=== PATIENT | female | born 1930 | race Caucasian/White ===

== ENCOUNTER → 2016-10-08 | Outpatient (REF) | payer MEDICARE, OTHER, MEDICAID ==
[~2016-10-08] MED LIST: /ATOR40TA; ASPI81TA83; CHLO10CA2; DARV100T; DYAZ37.5; K-LO20PO; LASI40TA; MACR50CA; MECL25TA2; ZOLO100T
== END ==
LOC: M SFHCCAPE 10:49
PROVIDERS: ATTEND Physician Assistant
DX: Z53.8 Procedure and treatment not carried out for other reasons (principal); E78.2 Mixed hyperlipidemia; E03.9 Hypothyroidism, unspecified; Z51.81 Encounter for therapeutic drug level monitoring

== ENCOUNTER 2017-07-17 20:24 | Inpatient (IN) | payer MEDICARE, OTHER, MEDICAID ==
[~2017-07-17] VITALS: Ht 157.5 cm; Wt 102.6 kg
[~2017-07-17 20:24] MED LIST changes: +MECL25TA2 PO
[2017-07-17] MEDS ORDERED: SPIR50TA2 PO (21:28)
[2017-07-17] MEDS ORDERED: TRAM37.53 PO (21:30)
[2017-07-17] MEDS ORDERED: LEVO137T2 PO (21:31)
[2017-07-17] MEDS ORDERED: VITA1CAP40 PO (21:34)
[2017-07-17] MEDS ORDERED: COUM2.5T17 PO (21:36)
[2017-07-17] MEDS ORDERED: WARF4TAB51 PO (21:36)
[2017-07-17 22:25] LABS: BASO % 0.1 % (0.0-1.0); IMMATURE GRANULOCYTE % 0.7 % (0-0); LYMPH # 0.8 10^3/uL (1.5-4.5); MEAN CORPUSCULAR HEMOGLOBIN 31.6 pg (27.0-33.0); MEAN CORPUSCULAR HGB CONC 33.2 g/dl (32.0-36.5); MONO # 1.7 10^3/uL (0.0-0.8); MONO % 8.5 % (0.0-5.0); NEUTROPHILS # 17.8 10^3/uL (1.8-7.7); NEUTROPHILS % 86.7 % (36.0-66.0); PLATELET COUNT, AUTOMATED 184 10^3/uL (150-450); RED CELL DISTRIBUTION WIDTH 12.8 % (11.5-14.5); WHITE BLOOD COUNT 20.5 10^3/uL (4.0-10.0)
[2017-07-17 22:48] LABS: INR 2.58
[2017-07-17 22:52] LABS: ALBUMIN 2.6 GM/DL (3.2-5.2); ALBUMIN/GLOBULIN RATIO 0.76 (1.00-1.93); BILIRUBIN,DIRECT 0.3 MG/DL (0.0-0.2); BILIRUBIN,TOTAL 0.6 MG/DL (0.2-1.0); CALCIUM LEVEL 8.7 MG/DL (8.8-10.2); CREATININE FOR GFR 2.36 MG/DL (0.55-1.02); GLOMERULAR FILTRATION RATE 20.8 (>32); POTASSIUM SERUM 4.4 MEQ/L (3.5-5.1)
[2017-07-17] MEDS ORDERED: ACETAMINOPHEN TAB 650MG DOSE (2X325MG) PO ONE (23:15)
[2017-07-17] MEDS ORDERED: NS 1,000 ML IV ONE (23:30)
[2017-07-18] VITALS (7 sets, daily range): BP systolic 117–169; BP diastolic 60–87
[2017-07-18] MEDS ORDERED: CEFTRIAXONE SOD 1 GM in APPROPRIATE DILUENT 1 EA IV ONE (00:15)
[2017-07-18] MEDS ORDERED: ULTR37.54 PO (00:49)
[2017-07-18] MEDS ORDERED: WARF4TAB52 PO (00:49)
[2017-07-18] MEDS ORDERED: SYNT137T7 PO (00:49)
[2017-07-18] MEDS ORDERED: VITA1CAP40 PO (00:49)
[2017-07-18] MEDS ORDERED: MECL-68 PO (00:49)
[2017-07-18] MEDS ORDERED: SPIR50TA2 PO (00:49)
[2017-07-18] MEDS ORDERED: PATIENT COMMENT (00:49)
[2017-07-18] MEDS ORDERED: CHLO10CA PO (00:49)
[2017-07-18] MEDS ORDERED: ATOR1TAB19 PO (00:49)
[2017-07-18] MEDS ORDERED: WARF4TAB51 PO (00:49)
[2017-07-18] MEDS ORDERED: SERT-138 PO (00:49)
[2017-07-18] MEDS ORDERED: ONDANSETRON 4MG/2ML VIAL (J2405) IV PRN ×2 (02:00→08:45)
[2017-07-18] MEDS ORDERED: ACETAMINOPHEN TAB 650MG DOSE (2X325MG) PO PRN (02:00)
--- NOTE | 2017-07-18 02:40 | REPUSA ---
CLINICAL HISTORY: Abdominal pain. TECHNIQUE: Multiple axial, sagittal and coronal CT images were obtained through the abdomen and pelvi s without administration of oral or IV contrast material. COMMENTS: Right lateral anterior abdominal wall hernia containing incarcerated small and large bowels. 1.6x0.6 cm obstructing stone of the right ureteropelvic junction. Mild right hydronephrosis. Right pe rinephric fat stranding. Bilateral renal stones ranging in size between 4 and 22 mm. Prior hysterectomy. 4.5 cm left renal cyst. The liver is of uniform attenuation without mass or defect. There is no intra or extrahepatic biliary ductal dilatation. The spleen is normal. The gallbladder is absent. The pancreas is of normal contou r and attenuation characteristics. There is no evidence of adrenal mass. There is no evidence for appendicitis. There is no bowel wall thickening. No evidence for small or la rge bowel obstruction. There is no evidence of abdominal ascites or lymphadenopathy. There is no evidence of intrinsic or extrinsic bladder mass. There is no pelvic ascites or lymphadeno sergei. Images of the lung bases show no evidence of pleural or parenchymal mass. Bilateral basilar subsegmen antoine atelectatic airspace disease. There are no pleural effusions. Bilateral basilar subsegmental atel ectatic airspace disease in the lower lobes. The bony structures are free of lytic or blastic lesions. Multilevel degenerative changes are seen in volving the thoracolumbar spine. Scattered calcifications are seen involving the aorta and major branches compatible with atherosclero sis. IMPRESSION: Right lateral anterior abdominal wall hernia containing nonincarcerated bowels. Obstructing stone at the right ureteropelvic junction. Bilateral nephrolithiasis. Thank you for your kind referral of this patient.
--- NOTE | 2017-07-18 02:48 | REP ---
Clinical: Fever . Comparison: 12/13/2014 . Findings: The mediastinum and cardiac silhouette are stable and within normal limits for portable technique. The lung jensen are clear without acute consolidation, effusion, or pneumothorax. Skeletal structures are intact. Impression: No acute cardiopulmonary process appreciated. Signed by Claus Cornejo MD 07/18/2017 02:38 A
--- NOTE | 2017-07-18 04:05 | HPEPDOC ---
General Date of Admission Jul 18, 2017 at 01:42 Primary Care Physician: ADELA BERMUDEZ PA-C Chief Complaint The patient is a 86-year-old female admitted with a reason for visit generalized weakness w/ n/v abdominal pain / to Uti w/Sepsis. Source: Family Exam Limitations: Dementia, Garbled speech Timing/Duration: 24 hours Severity: Severe History of Present Illness Ms. Webb is an 86-year-old female with past medical history of hypertension, anxiety, depression, obesity, history of lung and leg clot, Alzheimer's disease who presents to the emergency department with her daughter and grandson at bedside with the acute complaint of sudden onset generalized weakness accompanied with nausea and vomiting. The patient is at her baseline mentation according to family and much of the HPI and review of systems cannot be provided by the patient as she has advanced dementia and garbled speech. According to family, the patient began complaining of some generalized abdominal discomfort yesterday afternoon with increase in belching, she went to the bathroom and acutely was not able to get up due to bilateral leg weakness, the daughter and her son were there and decided to call EMS. The patient had vomited prior to the weakness episode, mostly the food she had tried to consume prior, no blood was present. She has not been ill lately, no fevers, muscle aches or chills, no pain with urination or blood in her urine, no back pain has been reported nor pain with defecation or blood in stool, although the patient did have 1 episode of loose stool with no blood yesterday afternoon. The patient did not states she was dizzy during her episode of weakness, she did not complain of chest pain nor shortness of breath, change in vision or headache. She did not fall nor sustain LOC. She lives at home by herself but has [id number]-[id number]-[id number] care by home health aides which are her grandsons. She takes all of her medication as scheduled. The family has noted that the past couple days she has not been eating or drinking as much as she normally does. In the emergency department the patient is able to tell me only that she is not in any pain at the moment. Home Medications Scheduled Atorvastatin Calcium (Atorvastatin Calcium) 10 Mg Tab, 10 MG PO DAILY, (Reported ) Ergocalciferol (Vitamin D) 50,000 Unit Cap, 50,000 UNIT PO 1XWK, (Reported) Levothyroxine Sodium (Synthroid) 137 Mcg Tab, 137 MCG PO DAILY, (Reported) Sertraline HCl (Sertraline HCl) 100 Mg Tab, 100 MG PO DAILY, (Reported) Spironolactone (Spironolactone) 50 Mg Tab, 50 MG PO DAILY, (Reported) Warfarin Sod (Warfarin Sodium) 1 Mg Tab, 1 MG PO ASDIRECTED, (Reported) TAKES EVERY OTHER DAY Warfarin Sod (Warfarin Sodium) 2 Mg Tab, 2 MG PO ASDIRECTED, (Reported) TAKES EVERY OTHER DAY Scheduled PRN Chlordiazepoxide (Chlordiazepoxide HCl) 10 Mg Cap, 10 MG PO TID PRN for ANXIETY/ AGITATION, (Reported) Meclizine HCl (Meclizine HCl) 25 Mg Tab, 25 MG PO Q6H PRN for VERTIGO/DIZZINESS, (Reported) Tramadol/Apap (Ultracet 37.5-325 mg) 1 Tab Tab, 1 TAB PO Q6H PRN for PAIN, ( Reported) Miscellaneous Medications [Patient Comment] , (Reported) FAMILY AT THE HOSPITAL AND PATIENT WERE UNAWARE OF MEDICATION. ANOTHER GRANDSON OF THE PATIENT TAKES CARE OF THE MEDS AND DID NOT ANSWER HIS MOM'S PHONE CALLS. GOING TO TRY TO CALL HIM IN THE MORNING. Allergies Coded Allergies: Atenolol (Verified Allergy, Unknown, 11/19/12) Furosemide (Verified Allergy, Unknown, 11/19/12) Past Medical History Medical History As per HPI Family History Significant Family History: No pertinent family hx Social History * Smoker: Denies Alcohol: Denies Drugs: denies Lives at home by herself with lwdsrr-fan-cwaoj care from home health aides. Review of Symptoms Constitutional: Reports: Malaise, Weakness, Fatigue, Other (obtained from her family at bedside, patient has advanced dementia and garbled speech- this is her baseline), Denies: Chills, Fever, Night Sweats, Weight Loss Eyes: Denies: Pain ENT: Denies: Head Aches Skin: Reports: Bruising (patient is on Coumadin), Denies: Rash, Lesions Pulmonary: Denies: Dyspnea, Cough Cardiovascular: Denies: Chest Pain, Palpitations Gastrointestinal: Reports: Nausea, Vomiting, Abdominal Pain, Diarrhea Genitourinary: Denies: Dysuria, Frequency, Incontinence, Hematuria, Retention Hematologic: Reports: Bruising Neurological: Reports: Weakness, Denies: Numbness, Incoordination, Change in speech Psych: Reports: Memory Issues Physical Examination General Exam: Positive: Alert, Cooperative, No Acute Distress, Other (garbled speech) Eye Exam: Positive: Conjunctiva & lids normal, EOMI, Negative: Sclera icteric ENT Exam: Positive: Atraumatic, Mucous membr. moist/pink, Pharynx Normal, Tongue Midline, Nares Patent, Negative: Pharyngeal Edema Heart Exam: Positive: Rate Normal, Normal S1, Normal S2, Negative: Murmurs, Rubs Abdomen Exam: Positive: Normal bowel sounds, Soft, Tenderness (mild diffuse tenderness), Negative: Hepatospenomegaly Extremity Exam: Positive: Edema (trace bilateral lower extremity edema, this is normal as per family), Normal pulses, Negative: Clubbing, Cyanosis, Tenderness Skin Exam: Positive: Other skin issue (patient does have generalized bruising, patient family states that this is from being on blood thinner and bruising easily when she happens to bump into things), Negative: Rash, Breakdown Neuro Exam: Negative: Normal Gait (at baseline patient is really nonmobile, requires 2 people to transport her from wheelchair to bed) Psych Exam: Negative: Memory Intact, Oriented x 3 Vital Signs Vital Signs Date Time Temp Pulse Resp B/P (MAP) Pulse Ox O2 Delivery O2 Flow Rate FiO2 07/17/17 23:39 131/60 (83) 07/17/17 23:34 92 94 07/17/17 23:05 102.3 07/17/17 21:46 20 Laboratory Data Labs 24H Laboratory Tests 2 07/17/17 22:20: Immature Granulocyte % (Auto) 0.7H, White Blood Count 20.5H, Red Blood Count 3.77L, Hemoglobin 11.9L, Hematocrit 35.8L, Mean Corpuscular Volume 95.0, Mean Corpuscular Hemoglobin 31.6, Mean Corpuscular Hemoglobin Concent 33.2, Red Cell Distribution Width 12.8, Platelet Count 184, Neutrophils (%) (Auto) 86.7H, Lymphocytes (%) (Auto) 4.0L, Monocytes (%) (Auto) 8.5H, Eosinophils (%) (Auto) 0.0, Basophils (%) (Auto) 0.1, Neutrophils # (Auto) 17.8H, Lymphocytes # (Auto) 0.8L, Monocytes # (Auto) 1.7H, Eosinophils # (Auto) 0.0, Basophils # (Auto) 0.0 , Immature Granulocyte # (Auto) 0.2H, Nucleated Red Blood Cells % (auto) 0.0, Prothrombin Time 28.8H, Prothromb Time International Ratio 2.58, Anion Gap 10, Glomerular Filtration Rate 20.8L, Calcium Level 8.7L, Aspartate Amino Transf ( AST/SGOT) 25, Alanine Aminotransferase (ALT/SGPT) 12, Alkaline Phosphatase 94, Total Bilirubin 0.6, Direct Bilirubin 0.3H, Total Creatine Kinase 122, Creatine Kinase MB 1.0, Creatine Kinase MB Relative Index 0.81, Troponin I 0.04, C- Reactive Protein, Quantitative 33.90H, Total Protein 6.0L, Albumin 2.6L, Albumin /Globulin Ratio 0.76L, Lipase 41L 07/17/17 23:04: Urine Appearance CLOUDYH, Urine Color YELLOW, Urine pH 5.0, Urine Specific [place] 1.014, Urine Protein 1+H, Urine Glucose (UA) NEGATIVE, Urine Ketones NEGATIVE, Urine Urobilinogen 0.2, Urine Bilirubin NEGATIVE, Urine Leukocyte Esterase 3+H, Urine Blood 2+H, Urine Nitrite NEGATIVE, Urine WBC (Auto) 63H, Urine RBC (Auto) 3, Urine Hyaline Casts (Auto) 0, Urine Bacteria (Auto) 3+H, Urine Squamous Epithelial Cells 0, Urine Amorphous Sediment SMALLH, Urine Mucus (Auto) SMALL, Urine Sperm (Auto) 07/17/17 23:30: Lactic Acid Level 1.6 CBC/BMP Laboratory Tests 07/17/17 22:20 Red Blood Count 3.77 L, Mean Corpuscular Volume 95.0, Mean Corpuscular Hemoglobin 31.6, Mean Corpuscular Hemoglobin Concent 33.2, Red Cell Distribution Width 12.8, Neutrophils (%) (Auto) 86.7 H, Lymphocytes (%) (Auto) 4.0 L, Monocytes (%) (Auto) 8.5 H, Eosinophils (%) (Auto) 0.0, Basophils (%) ( Auto) 0.1, Neutrophils # (Auto) 17.8 H, Lymphocytes # (Auto) 0.8 L, Monocytes # (Auto) 1.7 H, Eosinophils # (Auto) 0.0, Basophils # (Auto) 0.0 Microbiology Microbiology 07/17/17 Blood Culture, Received Pending 07/17/17 Blood Culture, Received Pending 07/17/17 Urine Culture, Received Pending Assessment/Plan This is an 86-year-old female presents to the emergency department after an episode of acute onset bilateral leg weakness accompanied by nausea and vomiting with diffuse abdominal discomfort. 1. Sepsis Patient meets SIRS criteria with a source, on presentation patient had fever 102.3 with a white count of 20.5, she was also tachycardic. Likely secondary to UTI, objective uropathy-obstructing stone seen on CT abdomen and pelvis UA in ED positive for infection Urine culture pending Blood culture pending Lactic within normal limits in ED, will repeat Patient received ceftriaxone in the emergency department, will continue with Zosyn therapy We'll gently fluid hydrate the patient normal saline at 100 Chest x-ray negative for focal source of infection CT abdomen and pelvis showed obstructing stone at the right ureteropelvic junction and bilateral nephrolithiasis Urology has been consulted, appreciate their help, patient to OR in the morning her nephrostomy tubes placement 2. Obstructive uropathy CT abdomen and pelvis revealed obstructing stone in the right ureteropelvic junction Urology has been consulted, patient will go to the OR in the morning She has received ceftriaxone in the emergency department, will continue with Zosyn antibiotic therapy We'll keep a close watch on blood pressure as decompensation in these patients can occur quickly Patient's blood pressure stable now, will receive fluid hydration of normal saline at 100 -Patient made NPO 3. Acute kidney injury -Likely secondary to decreased oral intake, sepsis, medication use (patient is on home spironolactone) -Patient will receive normal saline at 100 -Urine studies pending -UA positive for UTI, urine culture pending 4. Generalized weakness Likely secondary to sepsis Physical therapy consulted Patient may require placement 5. History of DVT and PE We'll hold Coumadin therapy for now in anticipation of procedure, INR therapeutic at 2.58, no FFP at this time 6. History of heart failure Patient's last echo in 2008 demonstrating ejection fraction of 65% We'll hold spironolactone at this time given acute kidney injury CXR in ED no cardiopulmonary process 7. Depression Continue with home medications 8. Hypothyroidism Continue with home medications 9. DVT prophylaxis SCD teds Plan / VTE VTE Prophylaxis Ordered?: Yes GME ATTESTATION GME ATTESTATION My faculty preceptor for this patient encounter was physically present during the encounter and was fully available. All aspects of the patient interview, examination, medical decision making process, and medical care plan development were reviewed and approved by the faculty preceptor. The faculty preceptor is aware and concurs with the plan as stated in the body of this note and will attest to such by his/her cosignature. SIMONE REDMAN DO Jul 18, 2017 04:05
[2017-07-18] MEDS: NS 1,000 ML IV SCH ×2 (04:16→09:31)
[2017-07-18 07:26] LABS: VENOUS BASE EXCESS -1.3 (-2.0-2.0); VENOUS O2 SATURATION 82.4 % (60.0-80.0); VENOUS PARTIAL PRESSURE CO2 43.4 mmHg (38.0-50.0); VENOUS PARTIAL PRESSURE O2 46.1 mmHg (30.0-50.0); VENOUS STANDARD HCO3 23.1 MEQ/L; VENOUS TOTAL CO2 25.5 MEQ/L (24.0-28.0)
[2017-07-18 07:35] LABS: MEAN CORPUSCULAR HEMOGLOBIN 31.6 pg (27.0-33.0); MEAN CORPUSCULAR HGB CONC 32.5 g/dl (32.0-36.5); MEAN CORPUSCULAR VOLUME 97.1 fl (80.0-96.0); PLATELET COUNT, AUTOMATED 119 10^3/uL (150-450); WHITE BLOOD COUNT 8.8 10^3/uL (4.0-10.0)
--- NOTE | 2017-07-18 07:53 | SMCUROLCON ---
Urology Consultation General Date of Consultation 07/18/17 Reason For Consultation This patient is seen for Uti,Sepsis. History of Present Illness This is an 86 y/o F w/ PMH significant for CKD, cataracts, DVTs, and Alzheimer' s dementia, admitted to the hospital for sepsis due to a urinary source. On w/ u in the ER a noncontrast CT A/P was notable for an obstructing 1.5cm right ureteropelvic junction (UPJ) stone as well as a nonobstructing 1.5cm right intrarenal stone. Her WBC was 20,000 and her Cr was elevated to 2.4. Due to dementia she is nonverbal. Past Medical History Medical History see HPI Surgical Hstory hysterectomy, appendectomy, cholecystectomy Medications Current Medications Current Medications Acetaminophen (Tylenol Tab) 650 mg Q4HP PRN PO MILD PAIN OR FEVER; Start at 02:00; Stop 08/17/17 at 01:59 Home Med (Med Rec Complete!) ASDIRECTED XX ; Start 07/18/17 at 01:00; Stop 07/18/17 at 01:09; Status DC Ondansetron HCl (ZOFRAN INJection) 4 mg Q6HP PRN IV NAUSEA OR VOMITING; Start 07/18/17 at 02:00; Stop 08/17/17 at 01:59 Piperacillin Sod/ Tazobactam Sod 2.25 gm/IV Miscellaneous Supplies 20 ml @ 40 mls/hr Q8H IV ; Start 07/18/17 at 09:00; Stop 07/25/17 at 08:59 Sodium Chloride 1,000 ml @ 125 mls/hr Q8H IV Last administered on 07/18/17t 04 :16; Start 07/18/17 at 01:59; Stop 07/18/17 at 18:25 Allergies Allergies: Coded Allergies: Atenolol (Verified Allergy, Unknown, 11/19/12) Furosemide (Verified Allergy, Unknown, 11/19/12) Review of Systems General: Reports: ROS Unobtainable Physical Examination General Exam: No Acute Distress Chest Exam: Clear to auscultation Heart Exam: Rate Normal, Regular Rhythm Abdomen Exam: Soft Skin Exam: Nl turgor and temperature Vital Signs/I&O Vital Signs Date Time Temp Pulse Resp B/P (MAP) Pulse Ox O2 Delivery O2 Flow Rate FiO2 07/18/17 06:13 98.5 110 20 149/87 (107) 98 Nasal Cannula 4.0 Laboratory Data 24H Labs Laboratory Tests 2 07/17/17 22:20: Immature Granulocyte % (Auto) 0.7H, White Blood Count 20.5H, Red Blood Count 3.77L, Hemoglobin 11.9L, Hematocrit 35.8L, Mean Corpuscular Volume 95.0, Mean Corpuscular Hemoglobin 31.6, Mean Corpuscular Hemoglobin Concent 33.2, Red Cell Distribution Width 12.8, Platelet Count 184, Neutrophils (%) (Auto) 86.7H, Lymphocytes (%) (Auto) 4.0L, Monocytes (%) (Auto) 8.5H, Eosinophils (%) (Auto) 0.0, Basophils (%) (Auto) 0.1, Neutrophils # (Auto) 17.8H, Lymphocytes # (Auto) 0.8L, Monocytes # (Auto) 1.7H, Eosinophils # (Auto) 0.0, Basophils # (Auto) 0.0 , Immature Granulocyte # (Auto) 0.2H, Nucleated Red Blood Cells % (auto) 0.0, Prothrombin Time 28.8H, Prothromb Time International Ratio 2.58, Anion Gap 10, Glomerular Filtration Rate 20.8L, Calcium Level 8.7L, Aspartate Amino Transf ( AST/SGOT) 25, Alanine Aminotransferase (ALT/SGPT) 12, Alkaline Phosphatase 94, Total Bilirubin 0.6, Direct Bilirubin 0.3H, Total Creatine Kinase 122, Creatine Kinase MB 1.0, Creatine Kinase MB Relative Index 0.81, Troponin I 0.04, C- Reactive Protein, Quantitative 33.90H, Total Protein 6.0L, Albumin 2.6L, Albumin /Globulin Ratio 0.76L, Lipase 41L 07/17/17 23:04: Urine Appearance CLOUDYH, Urine Color YELLOW, Urine pH 5.0, Urine Specific [place] 1.014, Urine Protein 1+H, Urine Glucose (UA) NEGATIVE, Urine Ketones NEGATIVE, Urine Urobilinogen 0.2, Urine Bilirubin NEGATIVE, Urine Leukocyte Esterase 3+H, Urine Blood 2+H, Urine Nitrite NEGATIVE, Urine WBC (Auto) 63H, Urine RBC (Auto) 3, Urine Hyaline Casts (Auto) 0, Urine Bacteria (Auto) 3+H, Urine Squamous Epithelial Cells 0, Urine Amorphous Sediment SMALLH, Urine Mucus (Auto) SMALL, Urine Sperm (Auto) 07/17/17 23:30: Lactic Acid Level 1.6 07/18/17 07:15: Blood Gas Bicarbonate Standard 23.1, Venous Blood pH 7.363, Venous Blood Partial Pressure CO2 43.4, Venous Blood Partial Pressure O2 46.1, Venous Blood Total Carbon Dioxide 25.5, Venous Blood HCO3 24.1, Venous Blood Oxygen Saturation 82.4H, Venous Blood Base Excess -1.3 CBC/BMP Laboratory Tests 07/17/17 22:20 Red Blood Count 3.77 L, Mean Corpuscular Volume 95.0, Mean Corpuscular Hemoglobin 31.6, Mean Corpuscular Hemoglobin Concent 33.2, Red Cell Distribution Width 12.8, Neutrophils (%) (Auto) 86.7 H, Lymphocytes (%) (Auto) 4.0 L, Monocytes (%) (Auto) 8.5 H, Eosinophils (%) (Auto) 0.0, Basophils (%) ( Auto) 0.1, Neutrophils # (Auto) 17.8 H, Lymphocytes # (Auto) 0.8 L, Monocytes # (Auto) 1.7 H, Eosinophils # (Auto) 0.0, Basophils # (Auto) 0.0 Microbiology Microbiology 07/17/17 Blood Culture, Received Pending 07/17/17 Blood Culture, Received Pending 07/17/17 Urine Culture, Received Pending Assessment This is an 86 y/o F w/ likely sepsis due to a urinary source and an obstructing right UPJ stone. Plan - continue broad-spectrum antibiotics - plan for OR this morning for cystoscopy and right ureteral stent placement ( informed consent obtained from patient's next of kin) - NPO until OR ALESSANDRO HER MD Jul 18, 2017 07:52
[2017-07-18 07:54] LABS: CREATININE FOR GFR 2.2 MG/DL (0.55-1.02); GLOMERULAR FILTRATION RATE 22.6 (>32); POTASSIUM SERUM 3.9 MEQ/L (3.5-5.1)
[2017-07-18] MEDS ORDERED: LIDOCAINE 2% 5ML JELLY UROJET As Ordered ONE (07:59)
[2017-07-18] MEDS ORDERED: CONRAY-60 60% 50ML VIAL (Q9961) As Ordered ONE (07:59)
[2017-07-18 08:00] LABS: BLASTS POS FLAG; LEFT SHIFT POS FLAG; PLT CLUMPS? POS FLAG; POS COUNT POS FLAG; POSITIVE MORPH POS FLAG
[2017-07-18] MEDS ORDERED: ZOSYN 3.375 GM VIAL (J2543) As Ordered ONE (08:00)
[2017-07-18 08:01] LABS: ADD MANUAL DIFFER YES; DIFF SLIDE NUMBER 93
[2017-07-18] MEDS ORDERED: PROPOFOL 200 MG/20 ML VIAL As Ordered ONE (08:19)
[2017-07-18] MEDS ORDERED: ePHEDrine SULFATE 25 MG/5 ML(5MG/ML) SYRINGE As Ordered ONE (08:19)
[2017-07-18] MEDS ORDERED: PHENYLephrine HCL 500 MCG/5 ML (100MCG/ML) SYRINGE (J2370) As Ordered ONE ×2 (08:19→08:24)
[2017-07-18] MEDS ORDERED: MIDAZOLAM INJ 2 MG/2 ML VIAL (J2250) As Ordered ONE (08:19)
[2017-07-18] MEDS ORDERED: fentaNYL 100 MCG/2 ML INJECTION (J3010) As Ordered ONE (08:19)
[2017-07-18] MEDS ORDERED: LR 1,000 ML IV SCH (08:45)
[2017-07-18] MEDS ORDERED: fentaNYL 100 MCG/2 ML INJECTION (J3010) IV PRN (08:45)
--- NOTE | 2017-07-18 08:49 | REP ---
Clinical: Obstructing uropathy. Technique: Intraoperative fluoroscopic imaging. Findings: Single intraoperative fluoroscopic image demonstrates the patient to be status post right ureteral stent placement with residual contrast versus calculus in the renal pelvis. The ureteral stent is in satisfactory position. Total fluoroscopic time 25 seconds. Impression: Status post right ureteral stent in satisfactory position. Signed by Claus Cornejo MD 07/18/2017 08:41 A
[2017-07-18] MEDS: PIPERACILLIN/TAZOBACTAM SOD 2.25 GM in APPROPRIATE DILUENT 1 EA IV SCH ×2 (09:31→10:21)
--- NOTE | 2017-07-18 09:35 | ECGEPIP ---
Stationary ECG Study [facility] - ED Test Date: 2017-07-17 Pat Name: ROWAN KRAMER Department: Room: [place] [address] Gender: F Legal Executive Assistant: bautista : [id number] Requested By: Garfield Rodriguez Order Number: [id number] Reading MD: Garfield Jaeger Measurements Intervals [place] Rate: 103 P: -37 [place]: 155 QRS: 1 QRSD: 94 T: 21 QT: 312 QTc: 409 Interpretive Statements SINUS TACHYCARDIA RATE CHANGE COMPARED TO 12/13/14 Electronically Signed On 07-18-2017 9:34:49 EST by Garfield Jaeger
[2017-07-18] MEDS ORDERED: LASI40TA PO (13:22)
--- NOTE | 2017-07-18 14:06 | RO ---
DATE OF PROCEDURE: 07/18/2017 PREPROCEDURE DIAGNOSIS: Right ureteral stone. POSTPROCEDURE DIAGNOSIS: Right ureteral stone. PROCEDURE: Cystoscopy, right ureteral stent placement. SURGEON: Dr. Garfield Ellsworth DIRECTOR ELECTRICAL ENGINEERING: None. ANESTHESIA: Monitored anesthesia care (MAC). OPERATIVE INDICATIONS: This is an 86-year-old female who was brought to the hospital and admitted with concerns for sepsis due to urinary source. A CT scan was obtained and it was also notable for a obstructing 1.5 cm right ureteropelvic junction stone. Given concern for sepsis and a right ureteral obstruction, it was recommended that she be brought to the operating room today for right ureteral stent placement. DESCRIPTION OF PROCEDURE: The patient was brought to the operating room and MAC anesthesia was administered. Broad-spectrum antibiotics were administered. She was then placed in the dorsal lithotomy position and prepped and draped in the usual sterile fashion. The rigid cystoscope was then inserted into the urethral meatus and advanced to the bladder. I then advanced an open-end ureteral catheter up into the right collecting system. Once the proximal end of the catheter was inside the kidney, I aspirated urine from the kidney and withdrew 10 mL of purulent urine from the right kidney. Once that was done, a wire was advanced into the right collecting system and the open-end ureteral catheter was removed. I then utilized the wire to advanced the #7-Tajik x 22-32 cm JJ ureteral stent up the right collecting system. The wire was then removed and there were adequate curls of the stent in the right renal pelvis and in the bladder. At this point, an #18-Tajik Bennett catheter was inserted into the bladder and the balloon was filled with 10 mL of sterile water. The catheter was connected to gravity drainage and this marked the conclusion of the procedure. The patient was then taken out of the dorsal lithotomy position and wakened from anesthesia and transported to the recovery room in stable condition. ESTIMATED BLOOD LOSS: Minimal. COMPLICATIONS: None. SPECIMENS: Urine culture from the right kidney. PLAN: The patient will be taken back to her room and will be continued on broad-spectrum antibiotics for treatment of her infection. SAM
[2017-07-18] MEDS ORDERED: MECLIZINE 25 MG TABLET PO PRN (14:45)
--- NOTE | 2017-07-18 15:13 | IPNPDOC ---
Date Seen The patient was seen on 07/18/17. Progress Note Subjective: Patient is seen and examined at the bedside. She has no new complaints, and denies dysuria, urgency, frequency, chills, She complains of weakness and fatigue. Vitals reviewed. Physical Examination General Exam: Positive: Alert, Cooperative, No Acute Distress, Other (garbled speech) Eye Exam: Positive: Conjunctiva & lids normal, EOMI, Negative: Sclera icteric ENT Exam: Positive: Atraumatic, Mucous membr. moist/pink, Pharynx Normal, Tongue Midline, Nares Patent, Negative: Pharyngeal Edema edentulous Heart Exam: Positive: Rate Normal, Normal S1, Normal S2, Negative: Murmurs, Rubs Abdomen Exam: Positive: Normal bowel sounds, Soft, Tenderness (mild diffuse tenderness), Negative: Hepatospenomegaly Extremity Exam: Positive: Edema (trace bilateral lower extremity edema, this is normal as per family), Normal pulses, Negative: Clubbing, Cyanosis, Tenderness Skin Exam: Positive: Other skin issue (patient does have generalized bruising, patient family states that this is from being on blood thinner and bruising easily when she happens to bump into things), Negative: Rash, Breakdown Neuro Exam: Negative: Normal Gait (at baseline patient is really nonmobile, requires 2 people to transport her from wheelchair to bed) Psych Exam: Negative: Memory Intact, Oriented x 3 ASSESSMENT AND PLAN: . 86-year-old female presents to the emergency department after an episode of acute onset bilateral leg weakness accompanied by nausea and vomiting with diffuse abdominal discomfort. 1. Sepsis secondary to UTI Patient meets SIRS criteria with a source, on presentation patient had fever 102.3 with a white count of 20.5, she was also tachycardic. Likely secondary to UTI, objective uropathy-obstructing stone seen on CT abdomen and pelvis UA in ED positive for infection Urine culture pending Blood culture pending Lactic within normal limits in ED, will repeat Patient received ceftriaxone in the emergency department, will continue with Zosyn therapy We'll gently fluid hydrate the patient normal saline at 100 Chest x-ray negative for focal source of infection CT abdomen and pelvis showed obstructing stone at the right ureteropelvic junction and bilateral nephrolithiasis Urology has been consulted, appreciate their help 2. Obstructive uropathy CT abdomen and pelvis revealed obstructing stone in the right ureteropelvic junction Urology has been consulted, patient will go to the OR in the morning She has received ceftriaxone in the emergency department, will continue with Zosyn antibiotic therapy We'll keep a close watch on blood pressure as decompensation in these patients can occur quickly Patient's blood pressure stable now, will receive fluid hydration of normal saline at 100 -Patient made NPO 3. Acute kidney injury -Likely secondary to decreased oral intake, sepsis, medication use (patient is on home spironolactone) -Patient will receive normal saline at 100 -Urine studies pending -UA positive for UTI, urine culture pending 4. Generalized weakness Likely secondary to sepsis Physical therapy consulted Patient may require placement 5. History of DVT and PE We'll hold Coumadin therapy for now in anticipation of procedure, INR therapeutic at 2.58, no FFP at this time 6. History of heart failure Patient's last echo in 2008 demonstrating ejection fraction of 65% We'll hold spironolactone at this time given acute kidney injury CXR in ED no cardiopulmonary process 7. Depression Continue with home medications 8. Hypothyroidism Continue with home medications 9. DVT prophylaxis SCD teds VS, I&O, 24H, Fishbone Vital Signs/I&O Vital Signs Date Time Temp Pulse Resp B/P (MAP) Pulse Ox O2 Delivery O2 Flow Rate FiO2 07/18/17 12:00 Nasal Cannula 4.0 07/18/17 10:41 99.1 106 20 120/73 (89) 93 I&O- Last 24 Hours up to 6 AM 07/19/17 06:00 Intake Total 600 ml Balance 600 ml Laboratory Data 24H LABS Laboratory Tests 2 07/17/17 22:20: Immature Granulocyte % (Auto) 0.7H, White Blood Count 20.5H, Red Blood Count 3.77L, Hemoglobin 11.9L, Hematocrit 35.8L, Mean Corpuscular Volume 95.0, Mean Corpuscular Hemoglobin 31.6, Mean Corpuscular Hemoglobin Concent 33.2, Red Cell Distribution Width 12.8, Platelet Count 184, Neutrophils (%) (Auto) 86.7H, Lymphocytes (%) (Auto) 4.0L, Monocytes (%) (Auto) 8.5H, Eosinophils (%) (Auto) 0.0, Basophils (%) (Auto) 0.1, Neutrophils # (Auto) 17.8H, Lymphocytes # (Auto) 0.8L, Monocytes # (Auto) 1.7H, Eosinophils # (Auto) 0.0, Basophils # (Auto) 0.0 , Immature Granulocyte # (Auto) 0.2H, Nucleated Red Blood Cells % (auto) 0.0, Prothrombin Time 28.8H, Prothromb Time International Ratio 2.58, Anion Gap 10, Glomerular Filtration Rate 20.8L, Calcium Level 8.7L, Aspartate Amino Transf ( AST/SGOT) 25, Alanine Aminotransferase (ALT/SGPT) 12, Alkaline Phosphatase 94, Total Bilirubin 0.6, Direct Bilirubin 0.3H, Total Creatine Kinase 122, Creatine Kinase MB 1.0, Creatine Kinase MB Relative Index 0.81, Troponin I 0.04, C- Reactive Protein, Quantitative 33.90H, Total Protein 6.0L, Albumin 2.6L, Albumin /Globulin Ratio 0.76L, Lipase 41L 07/17/17 23:04: Urine Appearance CLOUDYH, Urine Color YELLOW, Urine pH 5.0, Urine Specific Dowell 1.014, Urine Protein 1+H, Urine Glucose (UA) NEGATIVE, Urine Ketones NEGATIVE, Urine Urobilinogen 0.2, Urine Bilirubin NEGATIVE, Urine Leukocyte Esterase 3+H, Urine Blood 2+H, Urine Nitrite NEGATIVE, Urine WBC (Auto) 63H, Urine RBC (Auto) 3, Urine Hyaline Casts (Auto) 0, Urine Bacteria (Auto) 3+H, Urine Squamous Epithelial Cells 0, Urine Amorphous Sediment SMALLH, Urine Mucus (Auto) SMALL, Urine Sperm (Auto) 07/17/17 23:30: Lactic Acid Level 1.6 07/18/17 07:15: Nucleated Red Blood Cells % (auto) 0.0, Anion Gap 11, Glomerular Filtration Rate 22.6L, Calcium Level 8.0L, Neutrophils 93H, Lymphocytes (Manual) 6L, Monocytes (Manual) 1, Platelet Estimate NORMAL, Red Blood Cell Morphology NORMAL , Blood Gas Bicarbonate Standard 23.1, Venous Blood pH 7.363, Venous Blood Partial Pressure CO2 43.4, Venous Blood Partial Pressure O2 46.1, Venous Blood Total Carbon Dioxide 25.5, Venous Blood HCO3 24.1, Venous Blood Oxygen Saturation 82.4H, Venous Blood Base Excess -1.3, Blood Urea Nitrogen 45H, Creatinine 2.20H, Sodium Level 141, Potassium Level 3.9, Chloride Level 104, Carbon Dioxide Level 26 07/18/17 08:20: CBC/BMP Laboratory Tests 07/17/17 22:20 Red Blood Count 3.77 L, Mean Corpuscular Volume 95.0, Mean Corpuscular Hemoglobin 31.6, Mean Corpuscular Hemoglobin Concent 33.2, Red Cell Distribution Width 12.8, Neutrophils (%) (Auto) 86.7 H, Lymphocytes (%) (Auto) 4.0 L, Monocytes (%) (Auto) 8.5 H, Eosinophils (%) (Auto) 0.0, Basophils (%) ( Auto) 0.1, Neutrophils # (Auto) 17.8 H, Lymphocytes # (Auto) 0.8 L, Monocytes # (Auto) 1.7 H, Eosinophils # (Auto) 0.0, Basophils # (Auto) 0.0 07/18/17 07:15 Red Blood Count 3.74 L, Mean Corpuscular Volume 97.1 H, Mean Corpuscular Hemoglobin 31.6, Mean Corpuscular Hemoglobin Concent 32.5, Red Cell Distribution Width 13.0, Calcium Level 8.0 L Microbiology Microbiology 07/17/17 Blood Culture - Preliminary, Resulted 07/17/17 Blood Culture - Preliminary, Resulted 07/18/17 Urine Culture, Received Pending 07/17/17 Urine Culture, Received Pending YANIRA SULLIVAN MD Jul 18, 2017 15:13
[2017-07-18] MEDS: ATORVASTATIN 10 MG TAB PO SCH (15:40)
[2017-07-18] MEDS: SERTRALINE 100 MG TAB PO SCH (15:40)
[2017-07-19] MEDS: PIPERACILLIN/TAZOBACTAM SOD 2.25 GM in APPROPRIATE DILUENT 1 EA IV SCH ×3 (01:39→17:52)
[2017-07-19 02:00] VITALS: BP 127/59
[2017-07-19 06:00] VITALS: BP 133/60
[2017-07-19 06:10] LABS: BASO % 0.1 % (0.0-1.0); EOS % 0.2 % (0.0-3.0); LYMPH # 0.9 10^3/uL (1.5-4.5); LYMPH % 6.9 % (24.0-44.0); MEAN CORPUSCULAR HEMOGLOBIN 31.1 pg (27.0-33.0); MEAN CORPUSCULAR VOLUME 97.3 fl (80.0-96.0); MONO # 0.9 10^3/uL (0.0-0.8); MONO % 7.4 % (0.0-5.0); NEUTROPHILS # 10.8 10^3/uL (1.8-7.7); NEUTROPHILS % 84.4 % (36.0-66.0); PLATELET COUNT, AUTOMATED 129 10^3/uL (150-450); RED CELL DISTRIBUTION WIDTH 13.3 % (11.5-14.5); WHITE BLOOD COUNT 12.8 10^3/uL (4.0-10.0)
[2017-07-19 06:28] LABS: ALBUMIN 1.8 GM/DL (3.2-5.2); ALBUMIN/GLOBULIN RATIO 0.67 (1.00-1.93); BILIRUBIN,TOTAL 0.3 MG/DL (0.2-1.0); CALCIUM LEVEL 7.6 MG/DL (8.8-10.2); CREATININE FOR GFR 1.33 MG/DL (0.55-1.02); GLOMERULAR FILTRATION RATE 40.4 (>32); MAGNESIUM LEVEL 2.1 MG/DL (1.8-2.4); POTASSIUM SERUM 3.9 MEQ/L (3.5-5.1); TOTAL PROTEIN 4.5 GM/DL (6.4-8.2)
[2017-07-19] MEDS: LEVOTHYROXINE 137MCG TABLET (0.137MG) PO SCH (06:58)
--- NOTE | 2017-07-19 07:03 | IPNPDOC ---
Date Seen The patient was seen on 07/19/17. Progress Note SUBJECTIVE: Patient is seen and examined at the bedside. She has no new complaints, and denies dysuria, urgency, frequency, chills, She complains of weakness and fatigue. Vitals reviewed. Physical Examination General Exam: Positive: Alert, Cooperative, No Acute Distress, Other (garbled speech) Eye Exam: Positive: Conjunctiva & lids normal, EOMI, Negative: Sclera icteric ENT Exam: Positive: Atraumatic, Mucous membr. moist/pink, Pharynx Normal, Tongue Midline, Nares Patent, Negative: Pharyngeal Edema edentulous Heart Exam: Positive: Rate Normal, Normal S1, Normal S2, Negative: Murmurs, Rubs Abdomen Exam: Positive: Normal bowel sounds, Soft, Tenderness (mild diffuse tenderness), Negative: Hepatospenomegaly Extremity Exam: Positive: Edema (trace bilateral lower extremity edema, this is normal as per family), Normal pulses, Negative: Clubbing, Cyanosis, Tenderness Skin Exam: Positive: Other skin issue (patient does have generalized bruising, patient family states that this is from being on blood thinner and bruising easily when she happens to bump into things), Negative: Rash, Breakdown Neuro Exam: Negative: Normal Gait (at baseline patient is really nonmobile, requires 2 people to transport her from wheelchair to bed) Psych Exam: Negative: Memory Intact, Oriented x 3 ASSESSMENT AND PLAN: . 86-year-old female presents to the emergency department after an episode of acute onset bilateral leg weakness accompanied by nausea and vomiting with diffuse abdominal discomfort. 1. Sepsis secondary to UTI and gram negative bacteremia most likely transient from UTI Patient meets SIRS criteria with a source, on presentation patient had fever 102.3 with a white count of 20.5, she was also tachycardic. Obstructiv uropathy-obstructing stone seen on CT abdomen and pelvis UA in ED positive for infection Lactic within normal limits in ED Patient received ceftriaxone in the emergency department, will continue with Zosyn therapy We'll gently fluid hydrate the patient normal saline at 100 Chest x-ray negative for focal source of infection CT abdomen and pelvis showed obstructing stone at the right ureteropelvic junction and bilateral nephrolithiasis Urology has been consulted, appreciate their help 2. Obstructive uropathy CT abdomen and pelvis revealed obstructing stone in the right ureteropelvic junction. Appreciate Dr. bowden's input and management She has received ceftriaxone in the emergency department, will continue with Zosyn antibiotic therapy We'll keep a close watch on blood pressure as decompensation in these patients can occur quickly Patient's blood pressure stable now. Improving Creatinine. 3. Acute kidney injury -Likely secondary to decreased oral intake, sepsis, medication use (patient is on home spironolactone), and obstructive uropathy creatine is improving, avoid nephrotoxins and renally dose medications especially antibiotics, zosyn. Appreciate urology's input and management 4. Generalized weakness Likely secondary to sepsis Physical therapy consulted Patient may require placement 5. History of DVT and PE We'll hold Coumadin therapy for now in anticipation of procedure, INR therapeutic at 2.58, no FFP at this time 6. History of heart failure Patient's last echo in 2008 demonstrating ejection fraction of 65% We'll hold spironolactone at this time given acute kidney injury CXR in ED no cardiopulmonary process 7. Depression Continue with home medications 8. Hypothyroidism Continue with home medications 9. DVT prophylaxis SCD teds DISPOSITION: VS, I&O, 24H, [facility] Vital Signs/I&O Vital Signs Date Time Temp Pulse Resp B/P (MAP) Pulse Ox O2 Delivery O2 Flow Rate FiO2 07/19/17 02:00 98.1 89 18 127/59 (81) 97 Nasal Cannula 2.0 Laboratory Data 24H LABS Laboratory Tests 2 07/18/17 07:15: Nucleated Red Blood Cells % (auto) 0.0, Neutrophils 93H, Lymphocytes (Manual) 6L , Monocytes (Manual) 1, Platelet Estimate NORMAL, Red Blood Cell Morphology NORMAL, Blood Gas Bicarbonate Standard 23.1, Venous Blood pH 7.363, Venous Blood Partial Pressure CO2 43.4, Venous Blood Partial Pressure O2 46.1, Venous Blood Total Carbon Dioxide 25.5, Venous Blood HCO3 24.1, Venous Blood Oxygen Saturation 82.4H, Venous Blood Base Excess -1.3, Anion Gap 11, Glomerular Filtration Rate 22.6L, Blood Urea Nitrogen 45H, Creatinine 2.20H, Sodium Level 141, Potassium Level 3.9, Chloride Level 104, Carbon Dioxide Level 26, Calcium Level 8.0L 07/18/17 08:20: 07/19/17 05:46: Nucleated Red Blood Cells % (auto) 0.0, Anion Gap 9, Glomerular Filtration Rate 40.4, Blood Urea Nitrogen 49H, Creatinine 1.33H, Sodium Level 144, Potassium Level 3.9, Chloride Level 109H, Carbon Dioxide Level 26, Calcium Level 7.6L, Immature Granulocyte % (Auto) 1.0H, White Blood Count 12.8H, Red Blood Count 3.31L, Hemoglobin 10.3L, Hematocrit 32.2L, Mean Corpuscular Volume 97.3H, Mean Corpuscular Hemoglobin 31.1, Mean Corpuscular Hemoglobin Concent 32.0, Red Cell Distribution Width 13.3, Platelet Count 129L, Neutrophils (%) (Auto) 84.4H, Lymphocytes (%) (Auto) 6.9L, Monocytes (%) (Auto) 7.4H, Eosinophils (%) (Auto) 0.2, Basophils (%) (Auto) 0.1, Neutrophils # (Auto) 10.8H, Lymphocytes # (Auto) 0.9L, Monocytes # (Auto) 0.9H, Eosinophils # (Auto) 0.0, Basophils # (Auto) 0.0 , Immature Granulocyte # (Auto) 0.1H, Aspartate Amino Transf (AST/SGOT) 25, Alanine Aminotransferase (ALT/SGPT) 12, Alkaline Phosphatase 64, Total Bilirubin 0.3, Total Protein 4.5#L, Albumin 1.8#L, Magnesium Level 2.1, Albumin/ Globulin Ratio 0.67L CBC/BMP Laboratory Tests 07/18/17 07:15 Red Blood Count 3.74 L, Mean Corpuscular Volume 97.1 H, Mean Corpuscular Hemoglobin 31.6, Mean Corpuscular Hemoglobin Concent 32.5, Red Cell Distribution Width 13.0, Calcium Level 8.0 L 07/19/17 05:46 Red Blood Count 3.31 L, Mean Corpuscular Volume 97.3 H, Mean Corpuscular Hemoglobin 31.1, Mean Corpuscular Hemoglobin Concent 32.0, Red Cell Distribution Width 13.3, Calcium Level 7.6 L, Neutrophils (%) (Auto) 84.4 H, Lymphocytes (%) (Auto) 6.9 L, Monocytes (%) (Auto) 7.4 H, Eosinophils (%) (Auto ) 0.2, Basophils (%) (Auto) 0.1, Neutrophils # (Auto) 10.8 H, Lymphocytes # ( Auto) 0.9 L, Monocytes # (Auto) 0.9 H, Eosinophils # (Auto) 0.0, Basophils # ( Auto) 0.0, Aspartate Amino Transf (AST/SGOT) 25, Alanine Aminotransferase (ALT/ SGPT) 12, Alkaline Phosphatase 64, Total Bilirubin 0.3, Total Protein 4.5 #L, Albumin 1.8 #L Microbiology Microbiology 07/17/17 Blood Culture - Preliminary, Resulted 07/17/17 Blood Culture - Preliminary, Resulted 07/18/17 Urine Culture, Received Pending 07/17/17 Urine Culture, Received Pending YANIRA SULLIVAN MD Jul 19, 2017 07:01
[2017-07-19] MEDS: SERTRALINE 100 MG TAB PO SCH (08:58)
[2017-07-19] MEDS: ATORVASTATIN 10 MG TAB PO SCH (08:58)
[2017-07-19] MEDS ORDERED: INFLUENZA VIRUS VACCINE HIGH DOSE 0.5 ML SYRINGE (90662) IM ONE (09:00)
[2017-07-19] MEDS ORDERED: PREVNAR 13 VACCINE SYRINGE (CPT CODE:90670) IM ONE (09:00)
[2017-07-19 10:00] VITALS: BP 141/59
[2017-07-19 14:00] VITALS: BP 138/82
[2017-07-19 18:00] VITALS: BP 129/60
[2017-07-19 22:00] VITALS: BP 144/63
[2017-07-20] MEDS: PIPERACILLIN/TAZOBACTAM SOD 2.25 GM in APPROPRIATE DILUENT 1 EA IV SCH (01:27)
[2017-07-20 02:00] VITALS: BP 129/60
[2017-07-20] MEDS ORDERED: NYSTATIN 100,000 UNITS/GM TOPICAL PWD 15 GM TOP PRN (05:45)
[2017-07-20 06:00] VITALS: BP 148/64
[2017-07-20] MEDS: LEVOTHYROXINE 137MCG TABLET (0.137MG) PO SCH (06:18)
[2017-07-20 06:22] LABS: BASO % 0.2 % (0.0-1.0); EOS # 0.1 10^3/uL (0.0-0.50); IMMATURE GRANULOCYTE % 0.8 % (0-0); LYMPH # 0.9 10^3/uL (1.5-4.5); LYMPH % 8.8 % (24.0-44.0); MEAN CORPUSCULAR HEMOGLOBIN 31.3 pg (27.0-33.0); MEAN CORPUSCULAR HGB CONC 33.2 g/dl (32.0-36.5); MONO % 9.5 % (0.0-5.0); NEUTROPHILS # 8.5 10^3/uL (1.8-7.7); NEUTROPHILS % 79.7 % (36.0-66.0); PLATELET COUNT, AUTOMATED 147 10^3/uL (150-450); RED CELL DISTRIBUTION WIDTH 13.5 % (11.5-14.5); WHITE BLOOD COUNT 10.7 10^3/uL (4.0-10.0)
[2017-07-20 06:41] LABS: ALBUMIN 1.8 GM/DL (3.2-5.2); ALBUMIN/GLOBULIN RATIO 0.43 (1.00-1.93); BILIRUBIN,TOTAL 0.6 MG/DL (0.2-1.0); CALCIUM LEVEL 8.4 MG/DL (8.8-10.2); CREATININE FOR GFR 0.97 MG/DL (0.55-1.02); GLOMERULAR FILTRATION RATE 58.1 (>32); POTASSIUM SERUM 4.2 MEQ/L (3.5-5.1)
--- NOTE | 2017-07-20 07:24 | IPNPDOC ---
Date Seen The patient was seen on 07/20/17. Progress Note SUBJECTIVE:Patient is seen and examined at the bedside. She has no new complaints, and denies dysuria, urgency, frequency, chills, She complains of weakness and fatigue. Vitals reviewed. Physical Examination General Exam: Positive: Alert, Cooperative, No Acute Distress, Other (garbled speech) Eye Exam: Positive: Conjunctiva & lids normal, EOMI, Negative: Sclera icteric ENT Exam: Positive: Atraumatic, Mucous membr. moist/pink, Pharynx Normal, Tongue Midline, Nares Patent, Negative: Pharyngeal Edema edentulous Heart Exam: Positive: Rate Normal, Normal S1, Normal S2, Negative: Murmurs, Rubs Abdomen Exam: Positive: Normal bowel sounds, Soft, Tenderness (mild diffuse tenderness), Negative: Hepatospenomegaly Extremity Exam: Positive: Edema (trace bilateral lower extremity edema, this is normal as per family), Normal pulses, Negative: Clubbing, Cyanosis, Tenderness Skin Exam: Positive: Other skin issue (patient does have generalized bruising, patient family states that this is from being on blood thinner and bruising easily when she happens to bump into things), Negative: Rash, Breakdown Neuro Exam: Negative: Normal Gait (at baseline patient is really nonmobile, requires 2 people to transport her from wheelchair to bed) Psych Exam: Negative: Memory Intact, Oriented x 3 ASSESSMENT AND PLAN: . 86-year-old female presents to the emergency department after an episode of acute onset bilateral leg weakness accompanied by nausea and vomiting with diffuse abdominal discomfort. 1. Sepsis secondary to UTI (Proteus/Klebsiella)/ bacteremia most likely transient from UTI on presentation patient had fever 102.3 with a white count of 20.5, she was also tachycardic. Obstructiv uropathy-obstructing stone seen on CT abdomen and pelvis UA in ED positive for infection Lactic within normal limits in ED Patient received ceftriaxone in the emergency department, and Zosyn initially as inpt. We'll gently fluid hydrate the patient normal saline at 100 Chest x-ray negative for focal source of infection CT abdomen and pelvis showed obstructing stone at the right ureteropelvic junction and bilateral nephrolithiasis Urology has been consulted, appreciate their help Change to IV ceftriaxone to de-escalate antibiotic regimen. to complete a 10-14 day course. 2. Obstructive uropathy CT abdomen and pelvis revealed obstructing stone in the right ureteropelvic junction. Appreciate Dr. bowden's input and management She has received ceftriaxone in the emergency department, will continue with Zosyn antibiotic therapy We'll keep a close watch on blood pressure as decompensation in these patients can occur quickly Patient's blood pressure stable now. Improving Creatinine. 3. Acute kidney injury -Likely secondary to decreased oral intake, sepsis, medication use (patient is on home spironolactone), and obstructive uropathy creatine is improving, avoid nephrotoxins and renally dose medications especially antibiotics, zosyn. Appreciate urology's input and management 4. Generalized weakness Likely secondary to sepsis Physical therapy consulted Patient may require placement 5. 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 6. History of heart failure Patient's last echo in 2008 demonstrating ejection fraction of 65% We'll hold spironolactone at this time given acute kidney injury CXR in ED no cardiopulmonary process 7. Depression Continue with home medications 8. Hypothyroidism Continue with home medications 9. DVT prophylaxis SCD teds VS, I&O, 24H, Fishbone Vital Signs/I&O Vital Signs Date Time Temp Pulse Resp B/P (MAP) Pulse Ox O2 Delivery O2 Flow Rate FiO2 07/20/17 02:00 98.5 94 18 129/60 (83) 94 Nasal Cannula 2.0 Laboratory Data 24H LABS Laboratory Tests 2 07/19/17 05:46: Immature Granulocyte % (Auto) 1.0H, White Blood Count 12.8H, Red Blood Count 3.31L, Hemoglobin 10.3L, Hematocrit 32.2L, Mean Corpuscular Volume 97.3H, Mean Corpuscular Hemoglobin 31.1, Mean Corpuscular Hemoglobin Concent 32.0, Red Cell Distribution Width 13.3, Platelet Count 129L, Neutrophils (%) (Auto) 84.4H, Lymphocytes (%) (Auto) 6.9L, Monocytes (%) (Auto) 7.4H, Eosinophils (%) (Auto) 0.2, Basophils (%) (Auto) 0.1, Neutrophils # (Auto) 10.8H, Lymphocytes # (Auto) 0.9L, Monocytes # (Auto) 0.9H, Eosinophils # (Auto) 0.0, Basophils # (Auto) 0.0 , Immature Granulocyte # (Auto) 0.1H, Nucleated Red Blood Cells % (auto) 0.0, Anion Gap 9, Glomerular Filtration Rate 40.4, Blood Urea Nitrogen 49H, Creatinine 1.33H, Sodium Level 144, Potassium Level 3.9, Chloride Level 109H, Carbon Dioxide Level 26, Calcium Level 7.6L, Aspartate Amino Transf (AST/SGOT) 25, Alanine Aminotransferase (ALT/SGPT) 12, Alkaline Phosphatase 64, Total Bilirubin 0.3, Total Protein 4.5#L, Albumin 1.8#L, Magnesium Level 2.1, Albumin/ Globulin Ratio 0.67L CBC/BMP Laboratory Tests 07/19/17 05:46 Red Blood Count 3.31 L, Mean Corpuscular Volume 97.3 H, Mean Corpuscular Hemoglobin 31.1, Mean Corpuscular Hemoglobin Concent 32.0, Red Cell Distribution Width 13.3, Neutrophils (%) (Auto) 84.4 H, Lymphocytes (%) (Auto) 6.9 L, Monocytes (%) (Auto) 7.4 H, Eosinophils (%) (Auto) 0.2, Basophils (%) ( Auto) 0.1, Neutrophils # (Auto) 10.8 H, Lymphocytes # (Auto) 0.9 L, Monocytes # (Auto) 0.9 H, Eosinophils # (Auto) 0.0, Basophils # (Auto) 0.0, Calcium Level 7.6 L, Aspartate Amino Transf (AST/SGOT) 25, Alanine Aminotransferase (ALT/SGPT ) 12, Alkaline Phosphatase 64, Total Bilirubin 0.3, Total Protein 4.5 #L, Albumin 1.8 #L Microbiology Microbiology 07/17/17 Blood Culture - Preliminary, Resulted 07/17/17 Blood Culture - Preliminary, Resulted 07/18/17 Urine Culture - Final, Complete Proteus Mirabilis Klebsiella Pneumoniae#2 07/17/17 Urine Culture - Final, Complete Klebsiella Pneumoniae YANIRA SULLIVAN MD Jul 20, 2017 05:42
[2017-07-20] MEDS: CEFTRIAXONE SOD 2 GM in APPROPRIATE DILUENT 1 EA IV SCH (08:40)
[2017-07-20] MEDS: ATORVASTATIN 10 MG TAB PO SCH (08:40)
[2017-07-20] MEDS: SERTRALINE 100 MG TAB PO SCH (08:40)
[2017-07-20 10:00] VITALS: BP 140/68
--- NOTE | 2017-07-20 10:51 | IPNPDOC ---
Assessment/Plan Date Seen The patient was seen on 07/20/17. Patient Summary admitted for urosepsis and obstructive stone. Plan/VTE VTE Prophylaxis Ordered?: Yes Plan No further inpatient intervention required from urology unless patient condition worsens. As long as patient continues to recover then Dr. Ellsworth will plan to see her in his clinic as an outpatient upon discharge. Please ensure that patient's caretakers are aware she needs to see him in his clinic upon discharge to plan for eventual surgery for stone removal. Subjective Review oF Systems Chief Complaint The patient is a 86-year-old female admitted with a reason for visit of Uti, Sepsis. Events since Last Encounter admitted for with urosepsis secondary to UTI and obstructing 1.5cm right ureteropelvic junction (UPJ) stone. Dr. Ellsworth placed ureteral stent and pt has been receiving ABx. Now with significant improvement. Now AVSS with normalized Cr and WBC. General: Reports: Fatigue, Malaise Objective Physical Examination Heart Exam: Positive: Rate Normal, Normal S1, Normal S2, Negative: Murmurs, Rubs ABDOMEN EXAM: Soft, No: Tenderness Vital Signs/I&O Vital Signs Date Time Temp Pulse Resp B/P (MAP) Pulse Ox O2 Delivery O2 Flow Rate FiO2 07/20/17 06:00 97.6 89 18 148/64 (92) 94 Nasal Cannula 2.0 I&O- Last 24 Hours up to 6 AM 07/21/17 06:00 Intake Total 240 ml Balance 240 ml Laboratory Data Labs 24H Laboratory Tests 2 07/20/17 05:37: Immature Granulocyte % (Auto) 0.8H, White Blood Count 10.7H, Red Blood Count 3.52L, Hemoglobin 11.0L, Hematocrit 33.1L, Mean Corpuscular Volume 94.0, Mean Corpuscular Hemoglobin 31.3, Mean Corpuscular Hemoglobin Concent 33.2, Red Cell Distribution Width 13.5, Platelet Count 147L, Neutrophils (%) (Auto) 79.7H, Lymphocytes (%) (Auto) 8.8L, Monocytes (%) (Auto) 9.5H, Eosinophils (%) (Auto) 1.0, Basophils (%) (Auto) 0.2, Neutrophils # (Auto) 8.5H, Lymphocytes # (Auto) 0.9L, Monocytes # (Auto) 1.0H, Eosinophils # (Auto) 0.1, Basophils # (Auto) 0.0 , Immature Granulocyte # (Auto) 0.1H, Nucleated Red Blood Cells % (auto) 0.0, Anion Gap 7L, Glomerular Filtration Rate 58.1, Blood Urea Nitrogen 35H, Creatinine 0.97, Sodium Level 140, Potassium Level 4.2, Chloride Level 105, Carbon Dioxide Level 28, Calcium Level 8.4L, Aspartate Amino Transf (AST/SGOT) 38H, Alanine Aminotransferase (ALT/SGPT) 23, Alkaline Phosphatase 82, Total Bilirubin 0.6#, Total Protein 6.0#L, Albumin 1.8L, Magnesium Level 2.0, Albumin/ Globulin Ratio 0.43L CBC/BMP Laboratory Tests 07/20/17 05:37 Red Blood Count 3.52 L, Mean Corpuscular Volume 94.0, Mean Corpuscular Hemoglobin 31.3, Mean Corpuscular Hemoglobin Concent 33.2, Red Cell Distribution Width 13.5, Neutrophils (%) (Auto) 79.7 H, Lymphocytes (%) (Auto) 8.8 L, Monocytes (%) (Auto) 9.5 H, Eosinophils (%) (Auto) 1.0, Basophils (%) ( Auto) 0.2, Neutrophils # (Auto) 8.5 H, Lymphocytes # (Auto) 0.9 L, Monocytes # ( Auto) 1.0 H, Eosinophils # (Auto) 0.1, Basophils # (Auto) 0.0, Calcium Level 8.4 L, Aspartate Amino Transf (AST/SGOT) 38 H, Alanine Aminotransferase (ALT/ SGPT) 23, Alkaline Phosphatase 82, Total Bilirubin 0.6 #, Total Protein 6.0 #L, Albumin 1.8 L Microbiology Microbiology 07/20/17 Blood Culture, Received Pending 07/20/17 Blood Culture, Received Pending 07/17/17 Blood Culture - Final, Complete Proteus Mirabilis Klebsiella Pneumoniae 07/17/17 Blood Culture - Final, Complete Klebsiella Pneumoniae 07/18/17 Urine Culture - Final, Complete Proteus Mirabilis Klebsiella Pneumoniae#2 07/17/17 Urine Culture - Final, Complete Klebsiella Pneumoniae ZA CAPPS MD Jul 20, 2017 10:44
[2017-07-20 14:00] VITALS: BP 143/66
[2017-07-20] MEDS: WARFARIN SOD 1 MG TAB PO SCH (17:32)
[2017-07-20 22:00] VITALS: BP 158/81
[2017-07-21 02:00] VITALS: BP 140/66
[2017-07-21] MEDS: LEVOTHYROXINE 137MCG TABLET (0.137MG) PO SCH (05:50)
[2017-07-21 06:00] VITALS: BP 158/82
[2017-07-21 06:02] LABS: BASO % 0.4 % (0.0-1.0); EOS # 0.2 10^3/uL (0.0-0.50); EOS % 1.9 % (0.0-3.0); IMMATURE GRANULOCYTE % 1.6 % (0-0); LYMPH # 1.2 10^3/uL (1.5-4.5); LYMPH % 10.5 % (24.0-44.0); MEAN CORPUSCULAR HEMOGLOBIN 31.1 pg (27.0-33.0); MEAN CORPUSCULAR HGB CONC 32.3 g/dl (32.0-36.5); MEAN CORPUSCULAR VOLUME 96.4 fl (80.0-96.0); MONO # 1.1 10^3/uL (0.0-0.8); MONO % 9.7 % (0.0-5.0); NEUTROPHILS # 8.6 10^3/uL (1.8-7.7); NEUTROPHILS % 75.9 % (36.0-66.0); PLATELET COUNT, AUTOMATED 162 10^3/uL (150-450); RED CELL DISTRIBUTION WIDTH 13.5 % (11.5-14.5); WHITE BLOOD COUNT 11.4 10^3/uL (4.0-10.0)
[2017-07-21 06:16] LABS: INR 1.88
[2017-07-21 06:24] LABS: ALBUMIN 1.7 GM/DL (3.2-5.2); ALBUMIN/GLOBULIN RATIO 0.43 (1.00-1.93); ALKALINE PHOSPHATASE 75 U/L (45-117); ALT/SGPT 31 U/L (12-78); ANION GAP 5 MEQ/L (8-16); AST/SGOT 43 U/L (7-37); BILIRUBIN,TOTAL 0.5 MG/DL (0.2-1.0); BLOOD UREA NITROGEN 24 MG/DL (7-18); CALCIUM LEVEL 8.5 MG/DL (8.8-10.2); CARBON DIOXIDE LEVEL 30 MEQ/L (21-32); CHLORIDE LEVEL 105 MEQ/L (98-107); CREATININE FOR GFR 0.73 MG/DL (0.55-1.02); GLOMERULAR FILTRATION RATE > 60.0 (>32); GLUCOSE, FASTING 110 MG/DL (83-110); MAGNESIUM LEVEL 1.8 MG/DL (1.8-2.4); POTASSIUM SERUM 3.7 MEQ/L (3.5-5.1); SODIUM LEVEL 140 MEQ/L (136-145); TOTAL PROTEIN 5.7 GM/DL (6.4-8.2)
[2017-07-21 10:00] VITALS: BP 145/82
--- NOTE | 2017-07-21 10:48 | IPNPDOC ---
Date Seen The patient was seen on 07/21/17. Progress Note SUBJECTIVE: Patient is seen and examined at the bedside. She has no new complaints, and denies dysuria, urgency, frequency, chills, She complains of weakness and fatigue. Pt anxious to go home, and daughter states that they have 24/7 care at home. Vitals reviewed. Physical Examination General Exam: Positive: Alert, Cooperative, No Acute Distress, Other (garbled speech) Eye Exam: Positive: Conjunctiva & lids normal, EOMI, Negative: Sclera icteric ENT Exam: Positive: Atraumatic, Mucous membr. moist/pink, Pharynx Normal, Tongue Midline, Nares Patent, Negative: Pharyngeal Edema edentulous Heart Exam: Positive: Rate Normal, Normal S1, Normal S2, Negative: Murmurs, Rubs Abdomen Exam: Positive: Normal bowel sounds, Soft, Tenderness (mild diffuse tenderness), Negative: Hepatospenomegaly Extremity Exam: Positive: Edema (trace bilateral lower extremity edema, this is normal as per family), Normal pulses, Negative: Clubbing, Cyanosis, Tenderness Skin Exam: Positive: Other skin issue (patient does have generalized bruising, patient family states that this is from being on blood thinner and bruising easily when she happens to bump into things), Negative: Rash, Breakdown Neuro Exam: Negative: Normal Gait (at baseline patient is really nonmobile, requires 2 people to transport her from wheelchair to bed) Psych Exam: Negative: Memory Intact, Oriented x 3 ASSESSMENT AND PLAN: . 86-year-old female presents to the emergency department after an episode of acute onset bilateral leg weakness accompanied by nausea and vomiting with diffuse abdominal discomfort. 1. Sepsis secondary to UTI (Proteus/Klebsiella)/ bacteremia most likely transient from UTI on presentation patient had fever 102.3 with a white count of 20.5, she was also tachycardic. Obstructiv uropathy-obstructing stone seen on CT abdomen and pelvis UA in ED positive for infection Lactic within normal limits in ED Patient received ceftriaxone in the emergency department, and Zosyn initially as inpt. We'll gently fluid hydrate the patient normal saline at 100 Chest x-ray negative for focal source of infection CT abdomen and pelvis showed obstructing stone at the right ureteropelvic junction and bilateral nephrolithiasis Urology has been consulted, appreciate their help Change to IV ceftriaxone to de-escalate antibiotic regimen. to complete a 10-14 day course. Pt continues to have slight elevation in white count despite no fevers. will continue with same antibiotic unless becomes febrile. 2. Obstructive uropathy CT abdomen and pelvis revealed obstructing stone in the right ureteropelvic junction. Appreciate Dr. bowden's input and management She has received ceftriaxone in the emergency department. Outpatient fu with urology at hospital discharge. s/p stent placement We'll keep a close watch on blood pressure as decompensation in these patients can occur quickly. Patient's blood pressure stable now. Improving Creatinine. 3. Acute kidney injury -Likely secondary to decreased oral intake, sepsis, medication use (patient is on home spironolactone), and obstructive uropathy creatine is improving, avoid nephrotoxins and renally dose medications. Appreciate urology's input and management. resolved. outpatient followup with urology at hospital discharge. 4. Generalized weakness Likely secondary to sepsis. Physical therapy is recommending SNF placement, but patient's daughter says that they can provide 24/7 care at home. PFS/social work consulted to arrange final dc plans with the daughter. Currently medically stable, but increasing white count needs to be monitored. If patient becomes febrile, may have to re-assess. 5. 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 Resume home dose, and adjust if persistently subtherapeutic. 6. History of heart failure Patient's last echo in 2008 demonstrating ejection fraction of 65% We'll hold spironolactone at this time given acute kidney injury CXR in ED no cardiopulmonary process 7. Depression Continue with home medications 8. Hypothyroidism Continue with home medications 9. DVT prophylaxis SCD teds DISPOSITION: patient's daughter can provide 24/7 care at home. physical therapy is recommending SNF placement. No discharge today since white count is increasing. monitor for fevers for the next 24hrs. VS, I&O, 24H, Fishbone Vital Signs/I&O Vital Signs Date Time Temp Pulse Resp B/P (MAP) Pulse Ox O2 Delivery O2 Flow Rate FiO2 07/21/17 02:00 97.1 89 18 140/66 (90) 91 Nasal Cannula 2.0 Laboratory Data 24H LABS Laboratory Tests 2 07/21/17 05:29: Immature Granulocyte % (Auto) 1.6H, White Blood Count 11.4H, Red Blood Count 3.31L, Hemoglobin 10.3L, Hematocrit 31.9L, Mean Corpuscular Volume 96.4H, Mean Corpuscular Hemoglobin 31.1, Mean Corpuscular Hemoglobin Concent 32.3, Red Cell Distribution Width 13.5, Platelet Count 162, Neutrophils (%) (Auto) 75.9H, Lymphocytes (%) (Auto) 10.5L, Monocytes (%) (Auto) 9.7H, Eosinophils (%) (Auto) 1.9, Basophils (%) (Auto) 0.4, Neutrophils # (Auto) 8.6H, Lymphocytes # (Auto) 1.2L, Monocytes # (Auto) 1.1H, Eosinophils # (Auto) 0.2, Basophils # (Auto) 0.0 , Immature Granulocyte # (Auto) 0.2H, Nucleated Red Blood Cells % (auto) 0.0, Anion Gap 5L, Glomerular Filtration Rate > 60.0, Blood Urea Nitrogen 24H, Creatinine 0.73, Sodium Level 140, Potassium Level 3.7, Chloride Level 105, Carbon Dioxide Level 30, Calcium Level 8.5L, Aspartate Amino Transf (AST/SGOT) 43H, Alanine Aminotransferase (ALT/SGPT) 31, Alkaline Phosphatase 75, Total Bilirubin 0.5, Total Protein 5.7L, Albumin 1.7L, Magnesium Level 1.8, Albumin/ Globulin Ratio 0.43L CBC/BMP Laboratory Tests 07/21/17 05:29 Red Blood Count 3.31 L, Mean Corpuscular Volume 96.4 H, Mean Corpuscular Hemoglobin 31.1, Mean Corpuscular Hemoglobin Concent 32.3, Red Cell Distribution Width 13.5, Neutrophils (%) (Auto) 75.9 H, Lymphocytes (%) (Auto) 10.5 L, Monocytes (%) (Auto) 9.7 H, Eosinophils (%) (Auto) 1.9, Basophils (%) ( Auto) 0.4, Neutrophils # (Auto) 8.6 H, Lymphocytes # (Auto) 1.2 L, Monocytes # ( Auto) 1.1 H, Eosinophils # (Auto) 0.2, Basophils # (Auto) 0.0, Calcium Level 8.5 L, Aspartate Amino Transf (AST/SGOT) 43 H, Alanine Aminotransferase (ALT/ SGPT) 31, Alkaline Phosphatase 75, Total Bilirubin 0.5, Total Protein 5.7 L, Albumin 1.7 L Microbiology Microbiology 07/20/17 Blood Culture - Preliminary, Resulted No growth after 24 hours . All specim... 07/20/17 Blood Culture, Received Pending 07/17/17 Blood Culture - Final, Complete Proteus Mirabilis Klebsiella Pneumoniae 07/17/17 Blood Culture - Final, Complete Klebsiella Pneumoniae 07/18/17 Urine Culture - Final, Complete Proteus Mirabilis Klebsiella Pneumoniae#2 07/17/17 Urine Culture - Final, Complete Klebsiella Pneumoniae YANIRA SULLIVAN MD Jul 21, 2017 06:47
[2017-07-21] MEDS: SERTRALINE 100 MG TAB PO SCH (11:10)
[2017-07-21] MEDS: CEFTRIAXONE SOD 2 GM in APPROPRIATE DILUENT 1 EA IV SCH (11:10)
[2017-07-21] MEDS: ATORVASTATIN 10 MG TAB PO SCH (11:10)
[2017-07-21 14:00] VITALS: BP 143/69
[2017-07-21] MEDS: WARFARIN SOD 2 MG TAB PO SCH (17:57)
[2017-07-21 18:00] VITALS: BP 142/80
[2017-07-21 22:00] VITALS: BP 151/67
[2017-07-22 02:00] VITALS: BP 134/60
[2017-07-22] MEDS: LEVOTHYROXINE 137MCG TABLET (0.137MG) PO SCH (05:31)
[2017-07-22 06:00] VITALS: BP 138/63
[2017-07-22 06:40] LABS: ALBUMIN 1.7 GM/DL (3.2-5.2); ALBUMIN/GLOBULIN RATIO 0.44 (1.00-1.93); ALKALINE PHOSPHATASE 73 U/L (45-117); ALT/SGPT 34 U/L (12-78); ANION GAP 3 MEQ/L (8-16); AST/SGOT 41 U/L (7-37); BILIRUBIN,TOTAL 0.4 MG/DL (0.2-1.0); BLOOD UREA NITROGEN 21 MG/DL (7-18); CALCIUM LEVEL 8.6 MG/DL (8.8-10.2); CARBON DIOXIDE LEVEL 33 MEQ/L (21-32); CHLORIDE LEVEL 105 MEQ/L (98-107); CREATININE FOR GFR 0.66 MG/DL (0.55-1.02); GLOMERULAR FILTRATION RATE > 60.0 (>32); GLUCOSE, FASTING 101 MG/DL (83-110); MAGNESIUM LEVEL 1.9 MG/DL (1.8-2.4); POTASSIUM SERUM 3.5 MEQ/L (3.5-5.1); SODIUM LEVEL 141 MEQ/L (136-145); TOTAL PROTEIN 5.6 GM/DL (6.4-8.2)
[2017-07-22 06:41] LABS: INR 2.15
[2017-07-22 07:29] LABS: ADD MANUAL DIFFER YES; DIFF SLIDE NUMBER 37; MEAN CORPUSCULAR HGB CONC 32.2 g/dl (32.0-36.5); MEAN CORPUSCULAR VOLUME 96.2 fl (80.0-96.0); PLATELET COUNT, AUTOMATED 204 10^3/uL (150-450); POS COUNT POS FLAG; POSITIVE MORPH POS FLAG; RED CELL DISTRIBUTION WIDTH 13.4 % (11.5-14.5); WHITE BLOOD COUNT 13.5 10^3/uL (4.0-10.0)
[2017-07-22 07:35] LABS: BANDS 2 % (< 11)
[2017-07-22] MEDS: ATORVASTATIN 10 MG TAB PO SCH (09:07)
[2017-07-22] MEDS: SERTRALINE 100 MG TAB PO SCH (09:07)
[2017-07-22] MEDS: CEFTRIAXONE SOD 2 GM in APPROPRIATE DILUENT 1 EA IV SCH (09:33)
[2017-07-22 09:46] VITALS: BP 107/75
--- NOTE | 2017-07-22 12:57 | IPNPDOC ---
Text Note Date of Service The patient was seen on 07/22/17. NOTE SUBJECTIVE: Patient is seen and examined at the bedside. She has no new complaints. She does talk much this am possibly because i woke her up from deep sleep. Did answer a few questions with yes or no. Did say her abdomen still bothers her. PHYSICAL EXAM: Vitals: As below General Exam: Positive: Alert, Cooperative, No Acute Distress, Other (garbled speech) Eye Exam: Positive: Conjunctiva & lids normal, EOMI, Negative: Sclera icteric ENT Exam: Positive: Atraumatic, Mucous membr. moist/pink, Pharynx Normal, Tongue Midline, Nares Patent, Negative: Pharyngeal Edema edentulous Heart Exam: Positive: Rate Normal, Normal S1, Normal S2, Negative: Murmurs, Rubs Abdomen Exam: Positive: Normal bowel sounds, Soft, Tenderness (mild diffuse tenderness), Negative: Hepatospenomegaly Extremity Exam: Positive: Edema (trace bilateral lower extremity edema, this is normal as per family), Normal pulses, Negative: Clubbing, Cyanosis, Tenderness Skin Exam: Positive: Other skin issue (patient does have generalized bruising, patient family states that this is from being on blood thinner and bruising easily when she happens to bump into things), Negative: Rash, Breakdown Neuro Exam: Negative, at baseline patient is really nonmobile, requires 2 people to transport her from wheelchair to bed) Psych Exam: Negative ASSESSMENT AND PLAN: . 86-year-old female presents to the emergency department after an episode of acute onset bilateral leg weakness accompanied by nausea and vomiting with diffuse abdominal discomfort. Sepsis secondary to UTI (Proteus/Klebsiella) with obstructive uropathy: will continue ceftriaxone . WBC on the rise again. Bacteremia most likely transient from UTI: Blood culture proteus and klebsiella from 07/17, repeat blood culture on 07/20 positive 1/2 bottles with gram negative rods. Obstructive uropathy : due to right ureteropelvic junction stone. S/p cysto and right ureteric stent placement Outpatient fu with urology at hospital discharge. Acute kidney injury Multifactorial. secondary to decreased oral intake, sepsis , obstructive uropathy on the back ground of diuretics. Generalized weakness from muscle deconditioning. Physical therapy is recommending SNF placement, but patient's daughter says that they can provide 24/7 care at home. PFS/social work consulted to arrange final dc plans with the daughter. History of DVT and PE resumed coumadin History of heart failure : possibly diastolic CHF. Patient's last echo in 2008 demonstrating ejection fraction of 65% diuretic on hold. will resume on discharge. Depression Continue with home medications Hypothyroidism Continue with home medications Dementia : Has 24x7 care at home. History of hypertension: Bp soft at present . Hyperlipidemia: continue statin. DVT prophylaxis SCD teds DISPOSITION: patient's daughter can provide 24/7 care at home. physical therapy is recommending SNF placement. VS,Fishbone, I+O VS, Fishbone, I+O Laboratory Tests 07/22/17 05:41 Red Blood Count 3.16 L, Mean Corpuscular Volume 96.2 H, Mean Corpuscular Hemoglobin 31.0, Mean Corpuscular Hemoglobin Concent 32.2, Red Cell Distribution Width 13.4, Calcium Level 8.6 L, Aspartate Amino Transf (AST/SGOT) 41 H, Alanine Aminotransferase (ALT/SGPT) 34, Alkaline Phosphatase 73, Total Bilirubin 0.4, Total Protein 5.6 L, Albumin 1.7 L Vital Signs Date Time Temp Pulse Resp B/P (MAP) Pulse Ox O2 Delivery O2 Flow Rate FiO2 07/22/17 09:55 Nasal Cannula 2.0 07/22/17 09:46 98.4 76 20 107/75 (86) 94 I&O- Last 24 Hours up to 6 AM 07/23/17 06:00 Intake Total 920 ml Balance 920 ml JOEL FERRER MD Jul 22, 2017 12:57
[2017-07-22 14:41] VITALS: BP 128/66
[2017-07-22 17:35] VITALS: BP 136/72
[2017-07-22] MEDS: WARFARIN SOD 1 MG TAB PO SCH (18:03)
[2017-07-22 22:00] VITALS: BP 144/65
[2017-07-23 02:00] VITALS: BP 137/79
[2017-07-23] MEDS: LEVOTHYROXINE 137MCG TABLET (0.137MG) PO SCH (05:26)
[2017-07-23 05:55] LABS: MEAN CORPUSCULAR HGB CONC 32.5 g/dl (32.0-36.5); MEAN CORPUSCULAR VOLUME 95.4 fl (80.0-96.0); PLATELET COUNT, AUTOMATED 278 10^3/uL (150-450); RED CELL DISTRIBUTION WIDTH 13.4 % (11.5-14.5); WHITE BLOOD COUNT 13.5 10^3/uL (4.0-10.0)
[2017-07-23 06:00] VITALS: BP 130/85
[2017-07-23 06:04] LABS: POSITIVE MORPH POS FLAG
[2017-07-23 06:05] LABS: ADD MANUAL DIFFER YES; DIFF SLIDE NUMBER 23; POS COUNT POS FLAG
[2017-07-23 06:17] LABS: ALBUMIN 1.9 GM/DL (3.2-5.2); ALBUMIN/GLOBULIN RATIO 0.46 (1.00-1.93); ALKALINE PHOSPHATASE 79 U/L (45-117); ALT/SGPT 41 U/L (12-78); ANION GAP 6 MEQ/L (8-16); AST/SGOT 43 U/L (7-37); BILIRUBIN,TOTAL 0.3 MG/DL (0.2-1.0); BLOOD UREA NITROGEN 14 MG/DL (7-18); CALCIUM LEVEL 8.6 MG/DL (8.8-10.2); CARBON DIOXIDE LEVEL 31 MEQ/L (21-32); CHLORIDE LEVEL 105 MEQ/L (98-107); CREATININE FOR GFR 0.61 MG/DL (0.55-1.02); GLOMERULAR FILTRATION RATE > 60.0 (>32); GLUCOSE, FASTING 104 MG/DL (83-110); MAGNESIUM LEVEL 1.7 MG/DL (1.8-2.4); POTASSIUM SERUM 3.7 MEQ/L (3.5-5.1); SODIUM LEVEL 142 MEQ/L (136-145)
[2017-07-23 06:19] LABS: INR 2.49
[2017-07-23 08:00] VITALS: BP 132/82
[2017-07-23] MEDS: CEFTRIAXONE SOD 2 GM in APPROPRIATE DILUENT 1 EA IV SCH (08:02)
[2017-07-23] MEDS: SERTRALINE 100 MG TAB PO SCH (08:02)
[2017-07-23] MEDS: ATORVASTATIN 10 MG TAB PO SCH (08:02)
[2017-07-23 08:18] LABS: BANDS 1 % (< 11); EOSINOPHILS 4 % (0-5)
--- NOTE | 2017-07-23 11:37 | IPNPDOC ---
Text Note Date of Service The patient was seen on 07/23/17. NOTE SUBJECTIVE: Patient is seen and examined at the bedside. She has no new complaints. Sleeping this am . Woke up during exam however immediately went back to sleep. PHYSICAL EXAM: Vitals: As below General Exam: Positive: Alert, Cooperative, No Acute Distress, Other (garbled speech) Eye Exam: Positive: Conjunctiva & lids normal, EOMI, Negative: Sclera icteric ENT Exam: Positive: Atraumatic, Mucous membr. moist/pink, Pharynx Normal, Tongue Midline, Nares Patent, Negative: Pharyngeal Edema edentulous Heart Exam: Positive: Rate Normal, Normal S1, Normal S2, Negative: Murmurs, Rubs Abdomen Exam: Positive: Normal bowel sounds, Soft, Tenderness (mild diffuse tenderness), Negative: Hepatospenomegaly Extremity Exam: Positive: Edema (trace bilateral lower extremity edema, this is normal as per family), Normal pulses, Negative: Clubbing, Cyanosis, Tenderness Skin Exam: Positive: Other skin issue (patient does have generalized bruising, patient family states that this is from being on blood thinner and bruising easily when she happens to bump into things), Negative: Rash, Breakdown Neuro Exam: Negative, at baseline patient is really nonmobile, requires 2 people to transport her from wheelchair to bed) Psych Exam: Negative ASSESSMENT AND PLAN: . 86-year-old female presents to the emergency department after an episode of acute onset bilateral leg weakness accompanied by nausea and vomiting with diffuse abdominal discomfort. Sepsis secondary to UTI (Proteus/Klebsiella) with obstructive uropathy: will continue ceftriaxone . will need 14 days of antibiotics. will dc with levofloxacin. Bacteremia most likely transient from UTI: Blood culture proteus and klebsiella from 07/17, repeat blood culture on 07/20 positive 1/2 bottles with staph hominis which is a contaminant. Obstructive uropathy : due to right ureteropelvic junction stone. S/p cysto and right ureteric stent placement Outpatient fu with urology at hospital discharge. Acute kidney injury Multifactorial. secondary to decreased oral intake, sepsis , obstructive uropathy on the back ground of diuretics. Generalized weakness from muscle deconditioning. Physical therapy is recommending SNF placement, but patient's daughter says that they can provide 24/7 care at home. PFS/social work consulted to arrange final dc plans with the daughter. History of DVT and PE resumed coumadin History of heart failure : possibly diastolic CHF. Patient's last echo in 2008 demonstrating ejection fraction of 65% diuretic on hold. will resume on discharge. Depression Continue with home medications Hypothyroidism Continue with home medications Dementia : Has 24x7 care at home. History of hypertension: Bp soft at present . Hyperlipidemia: continue statin. DVT prophylaxis SCD teds DISPOSITION: patient's daughter can provide 24/7 care at home. will be dc ed home with 24 x 7 care. VS,Fishbone, I+O VS, Fishbone, I+O Laboratory Tests 07/23/17 05:35 Red Blood Count 3.23 L, Mean Corpuscular Volume 95.4, Mean Corpuscular Hemoglobin 31.0, Mean Corpuscular Hemoglobin Concent 32.5, Red Cell Distribution Width 13.4, Calcium Level 8.6 L, Aspartate Amino Transf (AST/SGOT) 43 H, Alanine Aminotransferase (ALT/SGPT) 41, Alkaline Phosphatase 79, Total Bilirubin 0.3, Total Protein 6.0 L, Albumin 1.9 L Vital Signs Date Time Temp Pulse Resp B/P (MAP) Pulse Ox O2 Delivery O2 Flow Rate FiO2 07/23/17 10:36 Nasal Cannula 2.0 07/23/17 08:00 98.0 74 20 132/82 (99) 97 I&O- Last 24 Hours up to 6 AM 07/24/17 06:00 Intake Total 120 ml Output Total 150 ml Balance -30 ml JOEL FERRER MD Jul 23, 2017 11:37
[2017-07-23] MEDS ORDERED: MAG SULF 1GM/100ML (MAG RUN) 1 GM in APPROPRIATE DILUENT 1 EA IV ONE (12:00)
[2017-07-23 14:00] VITALS: BP 130/67
[2017-07-23 16:00] VITALS: BP 136/80
[2017-07-23] MEDS: WARFARIN SOD 2 MG TAB PO SCH (17:34)
[2017-07-23 22:00] VITALS: BP 158/77
[2017-07-24 02:00] VITALS: BP 146/69
[2017-07-24] MEDS: LEVOTHYROXINE 137MCG TABLET (0.137MG) PO SCH (05:35)
[2017-07-24 06:00] VITALS: BP 137/62
[2017-07-24 07:32] LABS: MEAN CORPUSCULAR HEMOGLOBIN 30.8 pg (27.0-33.0); MEAN CORPUSCULAR VOLUME 96.2 fl (80.0-96.0); PLATELET COUNT, AUTOMATED 335 10^3/uL (150-450); RED CELL DISTRIBUTION WIDTH 13.5 % (11.5-14.5); WHITE BLOOD COUNT 12.3 10^3/uL (4.0-10.0)
[2017-07-24 07:44] LABS: ADD MANUAL DIFFER YES; DIFF SLIDE NUMBER 10; POS COUNT POS FLAG; POSITIVE MORPH POS FLAG
[2017-07-24 07:51] LABS: ALBUMIN 1.9 GM/DL (3.2-5.2); ALBUMIN/GLOBULIN RATIO 0.45 (1.00-1.93); ALKALINE PHOSPHATASE 80 U/L (45-117); ALT/SGPT 35 U/L (12-78); ANION GAP 8 MEQ/L (8-16); AST/SGOT 31 U/L (7-37); BILIRUBIN,TOTAL 0.3 MG/DL (0.2-1.0); BLOOD UREA NITROGEN 10 MG/DL (7-18); CALCIUM LEVEL 8.4 MG/DL (8.8-10.2); CARBON DIOXIDE LEVEL 29 MEQ/L (21-32); CHLORIDE LEVEL 105 MEQ/L (98-107); CREATININE FOR GFR 0.61 MG/DL (0.55-1.02); GLOMERULAR FILTRATION RATE > 60.0 (>32); GLUCOSE, FASTING 113 MG/DL (83-110); MAGNESIUM LEVEL 1.9 MG/DL (1.8-2.4); POTASSIUM SERUM 3.7 MEQ/L (3.5-5.1); SODIUM LEVEL 142 MEQ/L (136-145); TOTAL PROTEIN 6.1 GM/DL (6.4-8.2)
[2017-07-24 08:11] LABS: INR 2.35
[2017-07-24] MEDS ORDERED: COUM2TAB22 PO ×2 (08:11→09:44)
[2017-07-24] MEDS ORDERED: LEVA1TAB PO (08:11)
[2017-07-24] MEDS ORDERED: WARF05TA PO ×2 (08:11→09:44)
[2017-07-24 08:24] VITALS: BP 136/60
[2017-07-24 08:27] LABS: EOSINOPHILS 2 % (0-5)
[2017-07-24 08:29] LABS: HYPOCHROMASIA 1+; POLYCHROMASIA 1+
[2017-07-24 08:31] LABS: ANISOCYTOSIS 1+
[2017-07-24] MEDS: SERTRALINE 100 MG TAB PO SCH (09:20)
[2017-07-24] MEDS: ATORVASTATIN 10 MG TAB PO SCH (09:20)
[2017-07-24] MEDS: CEFTRIAXONE SOD 2 GM in APPROPRIATE DILUENT 1 EA IV SCH (09:23)
--- NOTE | 2017-07-24 10:30 | DS.PDOC ---
Discharge Summary General Date of Admission Jul 18, 2017 at 01:42 Date of Discharge Jul 24, 2017 Primary Care Physician: ADELA BERMUDEZ PA-C Attending Physician: JOEL FERRER MD Specialist/Consultants Involve: ALESSANDRO HER MD Discharge Summary CONSULTS: Dr. Her PROCEDURES: Cystoscopy, right ureteral stent placement. COMPLICATIONS: None ADMISSION / DISCHARGE DIAGNOSIS: 1. Sepsis. 2. Pyelonephritis. 3. Right obstructive uropathy with hydronephrosis. 4. Acute kidney injury 5. Generalized weakness. 6. History of VTE 7. Congestive heart failure with diastolic dysfunction and noted left ventricular ejection fraction 65%, compensated. 8. Depression. 9. Hypothyroidism BRIEF HOSPITAL COURSE: 87-year-old female presents to the emergency department on 07/18/2017 with sudden onset of acute nausea, vomiting and generalized weakness. This was all precipitated by her abdominal pain earlier that day. She does have noted advanced dementia and history of garbled speech which at time of discharge. She does appear to be back to her baseline. Evaluation in the emergency department did demonstrate a leukocytosis of white count 20.5, noted right ureteral obstructing stone on CT of the abdomen and pelvis, creatinine 2.36 (elevated from baseline). Lactic acid was 1.6. Ultimately, she was admitted for sepsis/pyelonephritis/obstructive uropathy/ acute kidney injury. She was started on IV fluids, IV antibiotics. Urology consult with Dr. Her resulting in cystoscopy and right ureteral stent placement. She did improve from a medical standpoint, however, required several days of ongoing physical therapy due to her deconditioning, labs were observed daily, which showed improvement of her renal function back to baseline and continue trending downward of her white count. For further details regarding her intake labs and diagnostics please refer the H &P. On date of discharge, she was felt to be back to her baseline, able to tolerate by mouth antibiotics and discharged back to the care of her daughter who is capable of providing 24/7 care at home along with a public health referral. PHYSICAL EXAMINATION ON DISCHARGE: VITAL SIGNS: Please see below. GENERAL: NAD, A&OX3 HEENT: PERRLA, throat clear, neck supple, no JVD CARDIOVASCULAR EXAMINATION: RRR RESPIRATORY EXAMINATION: CTA bilaterally ABDOMINAL EXAMINATION: soft, NT/ND, normoactive bowel sounds EXTREMITIES: no edema no calf tenderness SKIN: intact NEUROLOGICAL EXAMINATION: CN'S II-XII grossly intact PSYCHIATRIC EXAMINATION: stable DISCHARGE MEDICATIONS: See below DISCHARGE CONDITION: Stable/improved DISPOSITION: Discharged home with public health referral DISCHARGE INSTRUCTIONS: Activity: As tolerated Diet: Regular Follow up: 1-2 weeks with her primary care provider and one week with Dr. Her Seek medical attention should symptoms worsen or progress. Voiced understanding by patient and/or caregiver. Patient's daughter is been confirmed that she can provide 24/7 care at home. TRANSITION OF CARE ISSUES: Should resume periodic INR checks and follow-up with Dr. Her regarding right ureteral stent placement. TIME SPENT ON DISCHARGE: greater than 35 minutes Please CC: ROBERT Sánchez M.D. Vital Signs/I&Os Vital Signs Date Time Temp Pulse Resp B/P (MAP) Pulse Ox O2 Delivery O2 Flow Rate FiO2 07/24/17 09:30 Nasal Cannula 2.0 07/24/17 08:24 98.3 72 16 136/60 (85) 96 Laboratory Data Labs 24H Laboratory Tests 2 07/24/17 06:24: Immature Granulocyte % (Auto) , Nucleated Red Blood Cells % (auto) 0.0, Neutrophils 73, Lymphocytes (Manual) 17, Monocytes (Manual) 3, Eosinophils ( Manual) 2, Metamyelocytes 2H, Myelocytes 1H, Atypical Lymphocytes 2, Platelet Estimate NORMAL, Polychromasia 1+, Hypochromasia 1+, Basophilic Stippling 1+, Anisocytosis 1+, Macrocytosis 1+, Prothrombin Time 26.6H, Prothromb Time International Ratio 2.35, Anion Gap 8, Glomerular Filtration Rate > 60.0, Blood Urea Nitrogen 10, Creatinine 0.61, Sodium Level 142, Potassium Level 3.7, Chloride Level 105, Carbon Dioxide Level 29, Calcium Level 8.4L, Aspartate Amino Transf (AST/SGOT) 31, Alanine Aminotransferase (ALT/SGPT) 35, Alkaline Phosphatase 80, Total Bilirubin 0.3, Total Protein 6.1L, Albumin 1.9L, Magnesium Level 1.9, Albumin/Globulin Ratio 0.45L CBC/BMP Laboratory Tests 07/24/17 06:24 Red Blood Count 3.18 L, Mean Corpuscular Volume 96.2 H, Mean Corpuscular Hemoglobin 30.8, Mean Corpuscular Hemoglobin Concent 32.0, Red Cell Distribution Width 13.5, Calcium Level 8.4 L, Aspartate Amino Transf (AST/SGOT) 31, Alanine Aminotransferase (ALT/SGPT) 35, Alkaline Phosphatase 80, Total Bilirubin 0.3, Total Protein 6.1 L, Albumin 1.9 L Microbiology Microbiology 07/20/17 Blood Culture - Final, Complete Staphylococcus Hominis Ssp Sandra 07/20/17 Blood Culture - Preliminary, Resulted No Growth after 72 hours. All specime... 07/17/17 Blood Culture - Final, Complete Proteus Mirabilis Klebsiella Pneumoniae 07/17/17 Blood Culture - Final, Complete Klebsiella Pneumoniae 07/18/17 Urine Culture - Final, Complete Proteus Mirabilis Klebsiella Pneumoniae#2 07/17/17 Urine Culture - Final, Complete Klebsiella Pneumoniae Discharge Medications Scheduled Atorvastatin Calcium (Atorvastatin Calcium) 10 Mg Tab, 10 MG PO DAILY, (Reported ) Ergocalciferol (Vitamin D) 50,000 Unit Cap, 50,000 UNIT PO 2XW, (Reported) TUESDAYS AND SATURDAYS Furosemide (Lasix) 40 Mg Tab, 40 MG PO DAILY, (Reported) Levofloxacin Hemihydrate (Levaquin) 250 Mg Tab, 250 MG PO DAILY Levothyroxine Sodium (Synthroid) 137 Mcg Tab, 137 MCG PO DAILY, (Reported) Sertraline HCl (Sertraline HCl) 100 Mg Tab, 100 MG PO DAILY, (Reported) Spironolactone (Spironolactone) 50 Mg Tab, 50 MG PO DAILY, (Reported) Warfarin Sod (Coumadin) 0.5 Mg Halftab, 1 MG PO Q2D@1700 Warfarin Sod (Coumadin) 2 Mg Tab, 2 MG PO Q2D@1700 Scheduled PRN Chlordiazepoxide (Chlordiazepoxide HCl) 10 Mg Cap, 10 MG PO TID PRN for ANXIETY/ AGITATION, (Reported) Meclizine HCl (Meclizine HCl) 25 Mg Tab, 25 MG PO Q6H PRN for VERTIGO/DIZZINESS, (Reported) MAY TAKE 1-2 TABS Tramadol/Apap (Ultracet 37.5-325 mg) 1 Tab Tab, 1 TAB PO Q6H PRN for PAIN, ( Reported) Allergies Coded Allergies: Atenolol (Verified Allergy, Unknown, 11/19/12) Furosemide (Verified Allergy, Unknown, 11/19/12) MAYUR FELDMAN DO Jul 24, 2017 10:30
== END 2017-07-24 16:15 | disposition home health service (06) | DRG 872 ==
LOC: EDBD 20:24 → M ED 20:24 → M ED INP 07-18 01:42 → M PCU 07-18 03:35 → M MSPAV 07-18 11:26
PROVIDERS: ADMIT Internal Medicine; ATTEND Internal Medicine Nephrology
PROC: 0T768DZ Dilation of Right Ureter with Intraluminal Device, Via Natural or Artificial Opening Endoscopic (ICD-10-PCS; 2017-07-18)
PROC: 0T9680Z Drainage of Right Ureter with Drainage Device, Via Natural or Artificial Opening Endoscopic (ICD-10-PCS; principal; 2017-07-18 07:30)
DX: A41.9 Sepsis, unspecified organism (principal); N39.0 Urinary tract infection, site not specified; N17.9 Acute kidney failure, unspecified; Z68.41 Body mass index [BMI] 40.0-44.9, adult; N12 Tubulo-interstitial nephritis, not specified as acute or chronic; I50.32 Chronic diastolic (congestive) heart failure; N13.9 Obstructive and reflux uropathy, unspecified; E66.9 Obesity, unspecified; I11.0 Hypertensive heart disease with heart failure; F41.9 Anxiety disorder, unspecified; F32.9 Major depressive disorder, single episode, unspecified; G30.9 Alzheimer's disease, unspecified; F02.80 Dementia in other diseases classified elsewhere, unspecified severity, without behavioral disturbance, psychotic disturbance, mood disturbance, and anxiety; Z79.01 Long term (current) use of anticoagulants; Z79.899 Other long term (current) drug therapy; Z88.8 Allergy status to other drugs, medicaments and biological substances; Z86.718 Personal history of other venous thrombosis and embolism; Z86.711 Personal history of pulmonary embolism; E03.9 Hypothyroidism, unspecified

== ENCOUNTER → 2017-09-12 | Day surgery (SDC) | payer MEDICARE, MEDICAID ==
[~2017-09-12] MED LIST changes: -/ATOR40TA; -ASPI81TA83; -CHLO10CA2; -DARV100T; -DYAZ37.5; -K-LO20PO; -LASI40TA; +LIDOCAINE 1% MDV 20ML VIAL SQ; +LR 1,000 ML IV; -MACR50CA; -MECL25TA2; -MECL25TA2 PO; -ZOLO100T
[2017-09-12 08:25] LABS: APPEARANCE, URINE MANUAL CLOUDY (CLEAR); COLOR, URINE MANUAL YELLOW (YELLOW); PH,URINE MAN 5.5 UNITS (5.0 - 7.0)
[2017-09-12 08:26] LABS: BILIRUBIN, URINE MANUAL NEGATIVE (NEGATIVE); BLOOD URINE MANUAL POSITIVE (NEGATIVE); GLUCOSE, URINE (UA) MANUAL NEGATIVE (NEGATIVE); KETONE, URINE MANUAL NEGATIVE (NEGATIVE); LEUKOCYTE ESTERASE, URINE MAN POSITIVE (NEGATIVE); MICROSCOPIC INDICATED? MAN YES (NO); NITRITE, URINE MANUAL POSITIVE (NEGATIVE); PROTEIN, URINE MANUAL 3+ mg/dL (NEGATIVE); UROBILINOGEN, URINE MANUAL NORMAL (NORMAL)
[2017-09-12 08:28] LABS: WBC, URINE TNTC /hpf (0-3)
[2017-09-12 08:29] LABS: AMORPHOUS SEDIMENT, URINE SMALL AMOUNT (NEGATIVE); BACTERIA, URINE SMALL AMOUNT; HYALINE CAST, URINE NONE SEEN /lpf (0-1); RENAL EPITHELIAL CELLS, URINE SMALL AMOUNT /hpf; SQUAMOUS EPITHELIAL CELL URINE MOD AMOUNT /hpf (SMALL AMT)
[2017-09-12 08:30] LABS: MICROSCOPIC EXAM PERFORMED
== END | disposition home or self-care (01) ==
LOC: M SDC 07:51
DX: N20.0 Calculus of kidney (principal); Z53.09 Procedure and treatment not carried out because of other contraindication
CPT/HCPCS: 81000

== ENCOUNTER → 2017-09-17 | Outpatient (REF) | payer MEDICARE, MEDICAID, OTHER | LOC: M SMT 18:17 | DX: N39.0 Urinary tract infection, site not specified (principal) ==

== ENCOUNTER 2017-09-22 11:37 | Day surgery (SDC) | payer MEDICARE, MEDICAID ==
[2017-09-22 12:45] LABS: INR 1.52; PROTHROMBIN TIME 18.7 SECONDS (12.4-14.5)
[2017-09-22] MEDS ORDERED: LIDOCAINE 1% MDV 20ML VIAL SQ (13:00)
[2017-09-22] MEDS ORDERED: LR 1,000 ML IV (13:00)
[2017-09-22] MEDS ORDERED: PROPOFOL 200 MG/20 ML VIAL As Ordered ×2 (13:09→13:20)
[2017-09-22] MEDS ORDERED: fentaNYL 100 MCG/2 ML INJECTION (J3010) As Ordered ×2 (13:12→13:38)
[2017-09-22] MEDS ORDERED: MIDAZOLAM INJ 2 MG/2 ML VIAL (J2250) As Ordered (13:23)
[2017-09-22] MEDS: LIDOCAINE 2% 5ML JELLY UROJET As Ordered (13:27)
[2017-09-22] MEDS ORDERED: ESMOLOL INJ 100MG/10ML VIAL As Ordered (13:39)
[2017-09-22] MEDS: CONRAY-60 60% 50ML VIAL (Q9961) As Ordered (13:39)
[2017-09-22] MEDS ORDERED: PERCOCET 5MG/325MG TAB As Ordered (15:27)
[2017-09-22] MEDS: PERCOCET 5MG/325MG TAB PO (15:35)
== END 2017-09-22 17:10 | disposition home or self-care (01) ==
LOC: M SDC 11:37
DX: N20.0 Calculus of kidney (principal); G30.9 Alzheimer's disease, unspecified; E78.5 Hyperlipidemia, unspecified; I13.0 Hypertensive heart and chronic kidney disease with heart failure and stage 1 through stage 4 chronic kidney disease, or unspecified chronic kidney disease; F32.9 Major depressive disorder, single episode, unspecified; N18.3 Chronic kidney disease, stage 3 (moderate); I50.32 Chronic diastolic (congestive) heart failure; E03.9 Hypothyroidism, unspecified; R60.0 Localized edema; I73.9 Peripheral vascular disease, unspecified; E66.9 Obesity, unspecified; Z68.41 Body mass index [BMI] 40.0-44.9, adult; R29.898 Other symptoms and signs involving the musculoskeletal system; M51.9 Unspecified thoracic, thoracolumbar and lumbosacral intervertebral disc disorder; F41.9 Anxiety disorder, unspecified; R41.3 Other amnesia; J45.909 Unspecified asthma, uncomplicated; Z88.8 Allergy status to other drugs, medicaments and biological substances; Z79.899 Other long term (current) drug therapy; Z86.718 Personal history of other venous thrombosis and embolism; Z90.710 Acquired absence of both cervix and uterus; Z96.1 Presence of intraocular lens
CPT/HCPCS: 52356

== ENCOUNTER 2017-10-14 14:32 | Inpatient (IN) | payer MEDICARE, MEDICAID, OTHER ==
[2017-10-14 16:28] LABS: BASO % 0.3 % (0.0-1.0); EOS # 0.1 10^3/uL (0.0-0.50); EOS % 0.8 % (0.0-3.0); HEMATOCRIT 38.8 % (36.0-47.0); HEMOGLOBIN 12.2 g/dl (12.0-16.0); IMMATURE GRANULOCYTE % 0.3 % (0-3.0); LYMPH # 3.1 10^3/uL (1.5-4.5); LYMPH % 27.8 % (24.0-44.0); MEAN CORPUSCULAR HEMOGLOBIN 30.1 pg (27.0-33.0); MEAN CORPUSCULAR HGB CONC 31.4 g/dl (32.0-36.5); MEAN CORPUSCULAR VOLUME 95.8 fl (80.0-96.0); MONO # 1.1 10^3/uL (0.0-0.8); MONO % 9.7 % (0.0-5.0); NEUTROPHILS # 6.9 10^3/uL (1.8-7.7); NEUTROPHILS % 61.1 % (36.0-66.0); PLATELET COUNT, AUTOMATED 340 10^3/uL (150-450); RED BLOOD COUNT 4.05 10^6/uL (4.00-5.40); RED CELL DISTRIBUTION WIDTH 13.6 % (11.5-14.5); WHITE BLOOD COUNT 11.2 10^3/uL (4.0-10.0)
[2017-10-14 16:47] LABS: ANION GAP 7 MEQ/L (8-16); BLOOD UREA NITROGEN 20 MG/DL (7-18); C REACTIVE PROTEIN QUANTITATIV 1.48 MG/DL (0.00-0.30); CALCIUM LEVEL 8.7 MG/DL (8.8-10.2); CARBON DIOXIDE LEVEL 32 MEQ/L (21-32); CHLORIDE LEVEL 100 MEQ/L (98-107); CREATININE FOR GFR 1.03 MG/DL (0.55-1.30); GLOMERULAR FILTRATION RATE 54.1 (>32); GLUCOSE, FASTING 104 MG/DL (70-100); SODIUM LEVEL 139 MEQ/L (136-145)
[2017-10-14 17:03] LABS: ERYTHROCYTE SEDIMENTATION RATE 55 mm/hr (0-42)
[2017-10-14 17:40] LABS: INR 2.37; PARTIAL THROMBOPLASTIN TIME 35.4 SECONDS (26.8-37.9); PROTHROMBIN TIME 26.8 SECONDS (12.4-14.5)
[2017-10-14] MEDS ORDERED: ONDANSETRON 4MG/2ML VIAL (J2405) IV (18:30)
[2017-10-14] MEDS ORDERED: MECLIZINE 25 MG TABLET PO (18:30)
[2017-10-14] MEDS ORDERED: HEPARIN SOD (PORCINE) 5000 UNITS/ML VIAL SC (22:00)
[2017-10-14] MEDS: DOCUSATE SODIUM 100 MG CAP PO (22:19)
[2017-10-14] MEDS: WARFARIN SOD 1 MG TAB PO (22:25)
[2017-10-14] MEDS: PIPERACILLIN/TAZOBACTAM SOD 2.25 GM in APPROPRIATE DILUENT 1 EA IV (22:26)
[2017-10-14] MEDS: NYSTATIN 100,000 UNITS/GM TOPICAL PWD 15 GM TOP (22:46)
[2017-10-14] MEDS: VANCOMYCIN HCL 1,000 MG, VIAL MATE ADAPTER 1 EACH in D5W 250 ML IV (23:29)
[2017-10-15] MEDS: PIPERACILLIN/TAZOBACTAM SOD 2.25 GM in APPROPRIATE DILUENT 1 EA IV ×3 (04:25→19:54)
[2017-10-15] MEDS: LEVOTHYROXINE 137MCG TABLET (0.137MG) PO (06:00)
[2017-10-15 07:33] LABS: HEMATOCRIT 36.5 % (36.0-47.0); HEMOGLOBIN 11.6 g/dl (12.0-16.0); MEAN CORPUSCULAR HEMOGLOBIN 30.7 pg (27.0-33.0); MEAN CORPUSCULAR HGB CONC 31.8 g/dl (32.0-36.5); MEAN CORPUSCULAR VOLUME 96.6 fl (80.0-96.0); PLATELET COUNT, AUTOMATED 288 10^3/uL (150-450); RED BLOOD COUNT 3.78 10^6/uL (4.00-5.40); RED CELL DISTRIBUTION WIDTH 13.7 % (11.5-14.5); WHITE BLOOD COUNT 8.5 10^3/uL (4.0-10.0)
[2017-10-15 08:03] LABS: ANION GAP 6 MEQ/L (8-16); BLOOD UREA NITROGEN 21 MG/DL (7-18); C REACTIVE PROTEIN QUANTITATIV 1.51 MG/DL (0.00-0.30); CALCIUM LEVEL 8.3 MG/DL (8.8-10.2); CARBON DIOXIDE LEVEL 33 MEQ/L (21-32); CHLORIDE LEVEL 101 MEQ/L (98-107); CREATININE FOR GFR 0.96 MG/DL (0.55-1.30); GLOMERULAR FILTRATION RATE 58.7 (>32); GLUCOSE, FASTING 87 MG/DL (70-100); POTASSIUM SERUM 3.4 MEQ/L (3.5-5.1); SODIUM LEVEL 140 MEQ/L (136-145)
[2017-10-15 08:37] LABS: INR 2.28
[2017-10-15] MEDS: VANCOMYCIN HCL 1,000 MG, VIAL MATE ADAPTER 1 EACH in D5W 250 ML IV ×2 (08:54→11:33)
[2017-10-15] MEDS: SPIRONOLACTONE 50 MG TAB PO (09:02)
[2017-10-15] MEDS: FUROSEMIDE 40 MG TAB PO (09:02)
[2017-10-15] MEDS: SERTRALINE 100 MG TAB PO (09:03)
[2017-10-15] MEDS: ATORVASTATIN 10 MG TAB PO (09:03)
[2017-10-15] MEDS: NYSTATIN 100,000 UNITS/GM TOPICAL PWD 15 GM TOP ×2 (09:03→19:54)
[2017-10-15] MEDS: DOCUSATE SODIUM 100 MG CAP PO ×2 (09:56→19:53)
[2017-10-15] MEDS: WARFARIN SOD 1 MG TAB PO (18:00)
[2017-10-16] MEDS: PIPERACILLIN/TAZOBACTAM SOD 2.25 GM in APPROPRIATE DILUENT 1 EA IV ×2 (05:00→12:07)
[2017-10-16] MEDS: LEVOTHYROXINE 137MCG TABLET (0.137MG) PO ×2 (05:00→06:00)
[2017-10-16 07:25] LABS: INR 1.81; PROTHROMBIN TIME 21.5 SECONDS (12.4-14.5)
[2017-10-16 07:49] LABS: C REACTIVE PROTEIN QUANTITATIV 1.22 MG/DL (0.00-0.30)
[2017-10-16] MEDS: VANCOMYCIN HCL 1,000 MG, VIAL MATE ADAPTER 1 EACH in D5W 250 ML IV (08:20)
[2017-10-16] MEDS: DOCUSATE SODIUM 100 MG CAP PO ×2 (09:29→20:57)
[2017-10-16] MEDS: SERTRALINE 100 MG TAB PO (09:30)
[2017-10-16] MEDS: ACETAMINOPHEN TAB 650MG DOSE (2X325MG) PO ×2 (09:31→17:47)
[2017-10-16] MEDS: SPIRONOLACTONE 50 MG TAB PO (09:31)
[2017-10-16] MEDS: NYSTATIN 100,000 UNITS/GM TOPICAL PWD 15 GM TOP ×2 (09:32→20:57)
[2017-10-16] MEDS: FUROSEMIDE 40 MG TAB PO (09:32)
[2017-10-16] MEDS: ATORVASTATIN 10 MG TAB PO (09:32)
[2017-10-16 11:26] LABS: HEMATOCRIT 33.2 % (36.0-47.0); HEMOGLOBIN 10.5 g/dl (12.0-16.0); MEAN CORPUSCULAR HEMOGLOBIN 30.9 pg (27.0-33.0); MEAN CORPUSCULAR HGB CONC 31.6 g/dl (32.0-36.5); MEAN CORPUSCULAR VOLUME 97.6 fl (80.0-96.0); PLATELET COUNT, AUTOMATED 279 10^3/uL (150-450); RED CELL DISTRIBUTION WIDTH 13.9 % (11.5-14.5); WHITE BLOOD COUNT 9.1 10^3/uL (4.0-10.0)
[2017-10-16 11:45] LABS: ANION GAP 5 MEQ/L (8-16); BLOOD UREA NITROGEN 16 MG/DL (7-18); CALCIUM LEVEL 8.6 MG/DL (8.8-10.2); CARBON DIOXIDE LEVEL 36 MEQ/L (21-32); CHLORIDE LEVEL 100 MEQ/L (98-107); CREATININE FOR GFR 0.87 MG/DL (0.55-1.30); GLOMERULAR FILTRATION RATE > 60.0 (>32); GLUCOSE, FASTING 85 MG/DL (70-100); SODIUM LEVEL 141 MEQ/L (136-145)
[2017-10-16] MEDS: WARFARIN SOD 1 MG TAB PO (17:46)
[2017-10-16] MEDS: AUGMENTIN 875 MG TAB PO (20:57)
[2017-10-17] MEDS: LEVOTHYROXINE 137MCG TABLET (0.137MG) PO (05:33)
[2017-10-17] MEDS: NYSTATIN 100,000 UNITS/GM TOPICAL PWD 15 GM TOP ×2 (09:29→19:47)
[2017-10-17] MEDS: ATORVASTATIN 10 MG TAB PO (09:29)
[2017-10-17] MEDS: DOCUSATE SODIUM 100 MG CAP PO ×2 (09:29→19:46)
[2017-10-17] MEDS: SERTRALINE 100 MG TAB PO (09:29)
[2017-10-17] MEDS: FUROSEMIDE 40 MG TAB PO (09:29)
[2017-10-17] MEDS: SPIRONOLACTONE 50 MG TAB PO (09:29)
[2017-10-17] MEDS: AUGMENTIN 875 MG TAB PO ×2 (09:29→19:46)
[2017-10-17] MEDS: WARFARIN SOD 1 MG TAB PO (17:30)
[2017-10-18] MEDS: ULTRACET TAB PO (05:38)
[2017-10-18 06:41] LABS: INR 1.21; PROTHROMBIN TIME 15.5 SECONDS (12.4-14.5)
[2017-10-18 06:42] LABS: C REACTIVE PROTEIN QUANTITATIV 0.53 MG/DL (0.00-0.30)
[2017-10-18] MEDS: VITAMIN D 50,000 UNITS CAPSULE (ERGOCALCIFEROL 1.25MG) PO (09:25)
[2017-10-18] MEDS: SPIRONOLACTONE 50 MG TAB PO (09:25)
[2017-10-18] MEDS: DOCUSATE SODIUM 100 MG CAP PO ×2 (09:25→19:52)
[2017-10-18] MEDS: ATORVASTATIN 10 MG TAB PO (09:25)
[2017-10-18] MEDS: AUGMENTIN 875 MG TAB PO ×2 (09:25→19:52)
[2017-10-18] MEDS: SERTRALINE 100 MG TAB PO (09:25)
[2017-10-18] MEDS: NYSTATIN 100,000 UNITS/GM TOPICAL PWD 15 GM TOP ×2 (09:25→19:52)
[2017-10-18] MEDS: FUROSEMIDE 40 MG TAB PO (09:25)
[2017-10-18] MEDS: LEVOTHYROXINE 137MCG TABLET (0.137MG) PO (09:26)
[2017-10-18] MEDS: WARFARIN SOD 1 MG TAB PO (17:49)
[2017-10-19 06:27] LABS: BASO # 0.1 10^3/uL (0.0-0.2); BASO % 0.6 % (0.0-1.0); EOS # 0.4 10^3/uL (0.0-0.50); EOS % 4.3 % (0.0-3.0); HEMATOCRIT 34.4 % (36.0-47.0); HEMOGLOBIN 10.6 g/dl (12.0-16.0); IMMATURE GRANULOCYTE % 0.8 % (0-3.0); LYMPH % 34.6 % (24.0-44.0); MEAN CORPUSCULAR HEMOGLOBIN 30.4 pg (27.0-33.0); MEAN CORPUSCULAR HGB CONC 30.8 g/dl (32.0-36.5); MEAN CORPUSCULAR VOLUME 98.6 fl (80.0-96.0); MONO # 0.7 10^3/uL (0.0-0.8); MONO % 7.9 % (0.0-5.0); NEUTROPHILS # 4.5 10^3/uL (1.8-7.7); NEUTROPHILS % 51.8 % (36.0-66.0); PLATELET COUNT, AUTOMATED 289 10^3/uL (150-450); RED BLOOD COUNT 3.49 10^6/uL (4.00-5.40); RED CELL DISTRIBUTION WIDTH 14.2 % (11.5-14.5); WHITE BLOOD COUNT 8.7 10^3/uL (4.0-10.0)
[2017-10-19 06:37] LABS: INR 1.18; PROTHROMBIN TIME 15.2 SECONDS (12.4-14.5)
[2017-10-19 06:50] LABS: ANION GAP 5 MEQ/L (8-16); BLOOD UREA NITROGEN 24 MG/DL (7-18); C REACTIVE PROTEIN QUANTITATIV 0.34 MG/DL (0.00-0.30); CALCIUM LEVEL 8.8 MG/DL (8.8-10.2); CARBON DIOXIDE LEVEL 33 MEQ/L (21-32); CHLORIDE LEVEL 108 MEQ/L (98-107); CREATININE FOR GFR 0.89 MG/DL (0.55-1.30); GLOMERULAR FILTRATION RATE > 60.0 (>32); GLUCOSE, FASTING 108 MG/DL (70-100); POTASSIUM SERUM 3.9 MEQ/L (3.5-5.1); SODIUM LEVEL 146 MEQ/L (136-145)
[2017-10-19] MEDS: LEVOTHYROXINE 137MCG TABLET (0.137MG) PO (08:56)
[2017-10-19] MEDS: NYSTATIN 100,000 UNITS/GM TOPICAL PWD 15 GM TOP ×2 (08:56→20:13)
[2017-10-19] MEDS: ATORVASTATIN 10 MG TAB PO (08:56)
[2017-10-19] MEDS: SPIRONOLACTONE 50 MG TAB PO (08:56)
[2017-10-19] MEDS: AUGMENTIN 875 MG TAB PO ×2 (08:56→20:13)
[2017-10-19] MEDS: DOCUSATE SODIUM 100 MG CAP PO ×2 (08:56→20:14)
[2017-10-19] MEDS: SERTRALINE 100 MG TAB PO (08:56)
[2017-10-19] MEDS: FUROSEMIDE 40 MG TAB PO (08:56)
[2017-10-19] MEDS: ENOXAPARIN 100MG/1ML SYRINGE (J1650) SC ×2 (09:59→20:14)
[2017-10-19] MEDS: WARFARIN SOD 5 MG TAB PO (09:59)
[2017-10-20 06:41] LABS: BASO % 0.5 % (0.0-1.0); EOS # 0.4 10^3/uL (0.0-0.50); EOS % 4.6 % (0.0-3.0); HEMATOCRIT 32.8 % (36.0-47.0); HEMOGLOBIN 10.3 g/dl (12.0-16.0); IMMATURE GRANULOCYTE % 0.6 % (0-3.0); LYMPH # 2.8 10^3/uL (1.5-4.5); LYMPH % 35.2 % (24.0-44.0); MEAN CORPUSCULAR HEMOGLOBIN 30.7 pg (27.0-33.0); MEAN CORPUSCULAR HGB CONC 31.4 g/dl (32.0-36.5); MEAN CORPUSCULAR VOLUME 97.9 fl (80.0-96.0); MONO # 0.7 10^3/uL (0.0-0.8); MONO % 8.7 % (0.0-5.0); NEUTROPHILS % 50.4 % (36.0-66.0); PLATELET COUNT, AUTOMATED 269 10^3/uL (150-450); RED BLOOD COUNT 3.35 10^6/uL (4.00-5.40); RED CELL DISTRIBUTION WIDTH 14.1 % (11.5-14.5); WHITE BLOOD COUNT 7.9 10^3/uL (4.0-10.0)
[2017-10-20 06:55] LABS: INR 1.28; PROTHROMBIN TIME 16.2 SECONDS (12.4-14.5)
[2017-10-20 07:00] LABS: ANION GAP 4 MEQ/L (8-16); BLOOD UREA NITROGEN 20 MG/DL (7-18); C REACTIVE PROTEIN QUANTITATIV < 0.30 MG/DL (0.00-0.30); CALCIUM LEVEL 8.7 MG/DL (8.8-10.2); CARBON DIOXIDE LEVEL 35 MEQ/L (21-32); CHLORIDE LEVEL 106 MEQ/L (98-107); CREATININE FOR GFR 0.84 MG/DL (0.55-1.30); GLOMERULAR FILTRATION RATE > 60.0 (>32); GLUCOSE, FASTING 105 MG/DL (70-100); POTASSIUM SERUM 3.7 MEQ/L (3.5-5.1); SODIUM LEVEL 145 MEQ/L (136-145)
[2017-10-20] MEDS: LEVOTHYROXINE 137MCG TABLET (0.137MG) PO (08:52)
[2017-10-20] MEDS: ENOXAPARIN 100MG/1ML SYRINGE (J1650) SC ×2 (08:52→20:29)
[2017-10-20] MEDS: SPIRONOLACTONE 50 MG TAB PO (08:53)
[2017-10-20] MEDS: SERTRALINE 100 MG TAB PO (08:53)
[2017-10-20] MEDS: NYSTATIN 100,000 UNITS/GM TOPICAL PWD 15 GM TOP ×2 (08:53→20:30)
[2017-10-20] MEDS: DOCUSATE SODIUM 100 MG CAP PO ×2 (08:53→20:29)
[2017-10-20] MEDS: ULTRACET TAB PO (08:53)
[2017-10-20] MEDS: ATORVASTATIN 10 MG TAB PO (08:53)
[2017-10-20] MEDS: AUGMENTIN 875 MG TAB PO ×2 (08:53→20:29)
[2017-10-21 06:45] LABS: BASO % 0.5 % (0.0-1.0); EOS # 0.4 10^3/uL (0.0-0.50); EOS % 4.7 % (0.0-3.0); HEMATOCRIT 32.2 % (36.0-47.0); HEMOGLOBIN 9.9 g/dl (12.0-16.0); IMMATURE GRANULOCYTE % 0.5 % (0-3.0); LYMPH # 2.5 10^3/uL (1.5-4.5); MEAN CORPUSCULAR HEMOGLOBIN 29.7 pg (27.0-33.0); MEAN CORPUSCULAR HGB CONC 30.7 g/dl (32.0-36.5); MEAN CORPUSCULAR VOLUME 96.7 fl (80.0-96.0); MONO # 0.7 10^3/uL (0.0-0.8); MONO % 8.5 % (0.0-5.0); NEUTROPHILS % 52.8 % (36.0-66.0); PLATELET COUNT, AUTOMATED 273 10^3/uL (150-450); RED BLOOD COUNT 3.33 10^6/uL (4.00-5.40); RED CELL DISTRIBUTION WIDTH 14.2 % (11.5-14.5); WHITE BLOOD COUNT 7.7 10^3/uL (4.0-10.0)
[2017-10-21 06:56] LABS: INR 1.32; PROTHROMBIN TIME 16.6 SECONDS (12.4-14.5)
[2017-10-21 07:01] LABS: ANION GAP 4 MEQ/L (8-16); BLOOD UREA NITROGEN 20 MG/DL (7-18); C REACTIVE PROTEIN QUANTITATIV < 0.30 MG/DL (0.00-0.30); CALCIUM LEVEL 8.9 MG/DL (8.8-10.2); CARBON DIOXIDE LEVEL 32 MEQ/L (21-32); CHLORIDE LEVEL 109 MEQ/L (98-107); CREATININE FOR GFR 0.83 MG/DL (0.55-1.30); GLOMERULAR FILTRATION RATE > 60.0 (>32); GLUCOSE, FASTING 113 MG/DL (70-100); POTASSIUM SERUM 3.8 MEQ/L (3.5-5.1); SODIUM LEVEL 145 MEQ/L (136-145)
[2017-10-21] MEDS: SERTRALINE 100 MG TAB PO (08:18)
[2017-10-21] MEDS: LEVOTHYROXINE 137MCG TABLET (0.137MG) PO (08:18)
[2017-10-21] MEDS: ATORVASTATIN 10 MG TAB PO (08:18)
[2017-10-21] MEDS: SPIRONOLACTONE 50 MG TAB PO (08:18)
[2017-10-21] MEDS: DOCUSATE SODIUM 100 MG CAP PO ×2 (08:18→21:32)
[2017-10-21] MEDS: AUGMENTIN 875 MG TAB PO (08:18)
[2017-10-21] MEDS: NYSTATIN 100,000 UNITS/GM TOPICAL PWD 15 GM TOP ×2 (08:19→21:32)
[2017-10-21] MEDS: ENOXAPARIN 100MG/1ML SYRINGE (J1650) SC ×2 (08:19→21:32)
[2017-10-21] MEDS: ULTRACET TAB PO (12:01)
[2017-10-21] MEDS: WARFARIN SOD 5 MG TAB PO (17:48)
[2017-10-22 06:38] LABS: BASO % 0.5 % (0.0-1.0); EOS # 0.3 10^3/uL (0.0-0.50); EOS % 3.4 % (0.0-3.0); HEMOGLOBIN 9.8 g/dl (12.0-16.0); IMMATURE GRANULOCYTE % 0.6 % (0-3.0); LYMPH # 2.7 10^3/uL (1.5-4.5); LYMPH % 33.9 % (24.0-44.0); MEAN CORPUSCULAR HEMOGLOBIN 30.1 pg (27.0-33.0); MEAN CORPUSCULAR HGB CONC 30.6 g/dl (32.0-36.5); MEAN CORPUSCULAR VOLUME 98.2 fl (80.0-96.0); MONO # 0.7 10^3/uL (0.0-0.8); MONO % 8.4 % (0.0-5.0); NEUTROPHILS # 4.2 10^3/uL (1.8-7.7); NEUTROPHILS % 53.2 % (36.0-66.0); PLATELET COUNT, AUTOMATED 248 10^3/uL (150-450); RED BLOOD COUNT 3.26 10^6/uL (4.00-5.40); RED CELL DISTRIBUTION WIDTH 14.2 % (11.5-14.5); WHITE BLOOD COUNT 7.9 10^3/uL (4.0-10.0)
[2017-10-22 06:55] LABS: ANION GAP 6 MEQ/L (8-16); BLOOD UREA NITROGEN 21 MG/DL (7-18); CALCIUM LEVEL 9.2 MG/DL (8.8-10.2); CARBON DIOXIDE LEVEL 31 MEQ/L (21-32); CHLORIDE LEVEL 106 MEQ/L (98-107); CREATININE FOR GFR 0.95 MG/DL (0.55-1.30); GLOMERULAR FILTRATION RATE 59.4 (>32); GLUCOSE, FASTING 98 MG/DL (70-100); POTASSIUM SERUM 3.6 MEQ/L (3.5-5.1); SODIUM LEVEL 143 MEQ/L (136-145)
[2017-10-22] MEDS: SPIRONOLACTONE 50 MG TAB PO (08:47)
[2017-10-22] MEDS: ENOXAPARIN 100MG/1ML SYRINGE (J1650) SC (08:47)
[2017-10-22] MEDS: DOCUSATE SODIUM 100 MG CAP PO (08:47)
[2017-10-22] MEDS: ATORVASTATIN 10 MG TAB PO (08:47)
[2017-10-22] MEDS: LEVOTHYROXINE 137MCG TABLET (0.137MG) PO (08:47)
[2017-10-22] MEDS: SERTRALINE 100 MG TAB PO (08:47)
[2017-10-22] MEDS: NYSTATIN 100,000 UNITS/GM TOPICAL PWD 15 GM TOP (08:48)
== END 2017-10-22 11:20 | disposition home health service (06) | DRG 592 ==
LOC: M MS5PR 10-15 14:29 → M ED 14:32 → M ED INP 18:19 → M MS5PR 20:09
DX: L89.623 Pressure ulcer of left heel, stage 3 (principal); Z68.41 Body mass index [BMI] 40.0-44.9, adult; E87.0 Hyperosmolality and hypernatremia; L89.152 Pressure ulcer of sacral region, stage 2; L89.510 Pressure ulcer of right ankle, unstageable; E66.9 Obesity, unspecified; E03.9 Hypothyroidism, unspecified; E55.9 Vitamin D deficiency, unspecified; I10 Essential (primary) hypertension; E78.5 Hyperlipidemia, unspecified; G30.9 Alzheimer's disease, unspecified; F02.80 Dementia in other diseases classified elsewhere, unspecified severity, without behavioral disturbance, psychotic disturbance, mood disturbance, and anxiety; R42 Dizziness and giddiness; Z86.718 Personal history of other venous thrombosis and embolism; Z86.711 Personal history of pulmonary embolism; Z79.899 Other long term (current) drug therapy

== ENCOUNTER → 2017-11-11 | Outpatient (REF) | payer MEDICARE, OTHER, MEDICAID | LOC: M SFHCCAPE 16:54 | DX: L97.429 Non-pressure chronic ulcer of left heel and midfoot with unspecified severity (principal) | CPT/HCPCS: 87070; 87186 ==

== ENCOUNTER → 2018-04-08 | Outpatient (REF) | payer MEDICARE, OTHER, MEDICAID | LOC: M SFHCCAPE 13:07 | DX: S41.112A Laceration without foreign body of left upper arm, initial encounter (principal); X58.XXXA Exposure to other specified factors, initial encounter; Y92.9 Unspecified place or not applicable | CPT/HCPCS: 87186 ==

== ENCOUNTER → 2018-06-04 | Outpatient (REF) | payer MEDICARE, OTHER, MEDICAID | LOC: M SFHCCAPE 12:15 | DX: Z79.01 Long term (current) use of anticoagulants (principal) ==

== ENCOUNTER 2018-09-03 16:19 | Emergency (ER) | payer MEDICARE, OTHER, MEDICAID ==
[~2018-09-03] VITALS: Ht 154.9 cm; Wt 97.3 kg
[~2018-09-03 16:19] MED LIST changes: +/ATOR40TA; +ASPI81TA83; +ATOR1TAB19 PO; +CHLO10CA PO; +CHLO10CA2; +COUM2.5T17 PO; +COUM2TAB22 PO; +DARV100T; +DIFL40SU PO; +DIFL50TA PO; +DYAZ37.5; +K-LO20PO; +LASI40TA; +LASI40TA9 PO; +LEVA250T13 PO; +LEVO137T2 PO; -LIDOCAINE 1% MDV 20ML VIAL SQ; -LR 1,000 ML IV; +MACR50CA; +MECL-68 PO; +MECL25TA2; +MECL25TA2 PO; +PATIENT COMMENT; +SERT-138 PO; +SPIR50TA4 PO; +SYNT137T7 PO; +TRAM37.53 PO; +ULTR37.54 PO; +VITA50005 PO; +WARF05TA PO; +WARF4TAB51 PO; +WARF4TAB52 PO; +ZOLO100T
[2018-09-03] MEDS ORDERED: NS 1,000 ML IV ONE (16:45)
[2018-09-03 16:56] LABS: BASO # 0.1 10^3/uL (0.0-0.2); BASO % 0.5 % (0.0-1.0); EOS # 0.2 10^3/uL (0.0-0.50); HEMATOCRIT 41.1 % (36.0-47.0); HEMOGLOBIN 13.2 g/dl (12.0-15.5); LYMPH # 3.5 10^3/uL (1.5-4.5); LYMPH % 33.1 % (24.0-44.0); MEAN CORPUSCULAR HEMOGLOBIN 31.7 pg (27.0-33.0); MEAN CORPUSCULAR HGB CONC 32.1 g/dl (32.0-36.5); MEAN CORPUSCULAR VOLUME 98.8 fl (80.0-96.0); MONO # 0.8 10^3/uL (0.0-0.8); MONO % 7.9 % (0.0-5.0); NEUTROPHILS # 5.9 10^3/uL (1.8-7.7); NEUTROPHILS % 56.2 % (36.0-66.0); PLATELET COUNT, AUTOMATED 346 10^3/uL (150-450); RED BLOOD COUNT 4.16 10^6/uL (4.00-5.40); WHITE BLOOD COUNT 10.4 10^3/uL (4.0-10.0)
[2018-09-03 17:23] LABS: OSMOLALITY SERUM 300 MOSM/KG (280-301)
[2018-09-03 17:41] LABS: ALBUMIN 3.1 GM/DL (3.2-5.2); ALT/SGPT 13 U/L (12-78); BILIRUBIN,DIRECT 0.2 MG/DL (0.0-0.2); BILIRUBIN,TOTAL 0.5 MG/DL (0.2-1.0); BLOOD UREA NITROGEN 24 MG/DL (7-18); CALCIUM LEVEL 9.4 MG/DL (8.8-10.2); CARBON DIOXIDE LEVEL 35 MEQ/L (21-32); CHLORIDE LEVEL 98 MEQ/L (98-107); CPK CREATINE PHOSPHOKINASE 29 U/L (26-192); CREATININE FOR GFR 1.19 MG/DL (0.55-1.30); GLOMERULAR FILTRATION RATE 45.7 (>32); GLUCOSE, FASTING 104 MG/DL (70-100); MB/CK RELATIVE INDEX 4.14 (< OR =4); POTASSIUM SERUM 4.5 MEQ/L (3.5-5.1); SODIUM LEVEL 139 MEQ/L (136-145); TOTAL PROTEIN 6.2 GM/DL (6.4-8.2); TROPONIN I < 0.02 NG/ML (< 0.10)
--- NOTE | 2018-09-03 17:47 | REP ---
CT Head without contrast HISTORY: Altered mental status COMPARISON: 12/13/1948 Areas of decreased attenuation are present in the periventricular white matter. This represents small-vessel ischemic disease. There is no intraparenchymal hemorrhage, acute infarct, mass or midline shift. The ventricular system and cortical sulci are dilated consistent with moderate volume loss. There is no extra cerebral collection. There is no fracture. The visualized sinuses are clear. IMPRESSION: 1. Small vessel ischemic disease. 2. Moderate volume loss. Electronically Signed by Jose De Jesus Rhodes MD 09/03/2018 05:37 P
--- NOTE | 2018-09-03 17:52 | REP ---
CT cervical spine without contrast HISTORY: Altered mental status COMPARISON: None There is no acute fracture or subluxation. Disc bulges are present at the C3-4 and C4-5 levels. A disc bulge with associated osteophyte formation is present at the C5-6 level. Uncinate process and/or facet hypertrophy are present at the C2-3 through C7-T1 levels. These findings produce minimal to mild narrowing of the neural foramina. The C4-5 through C7-T1 levels are decreased in height consistent with disc degeneration. IMPRESSION: 1. There is no acute fracture or subluxation. 2. There is cervical spondylosis at the C2-3 through C7-T1 levels. Electronically Signed by Jose De Jesus Rhodes MD 09/03/2018 05:43 P
--- NOTE | 2018-09-03 17:59 | REP ---
CT CHEST WITHOUT CONTRAST: HISTORY: Altered mental status. COMPARISON: 10/17/2017 Linear densities are present in the left lower lobe consistent with atelectasis or scar. The right lung is clear. There is no pleural effusion. The heart is normal in size. There is no aneurysm. Atherosclerotic calcification is present in the thoracic aorta. Degenerative change is present in the thoracic spine. IMPRESSION: Left lower lobe atelectasis or scar. Electronically Signed by Jose De Jesus Rhodes MD 09/03/2018 06:01 P
[2018-09-03 18:02] LABS: INR 2.53; PROTHROMBIN TIME 27.7 SECONDS (12.1-14.4)
[2018-09-03 18:03] LABS: PARTIAL THROMBOPLASTIN TIME 35.8 SECONDS (25.4-37.6)
[2018-09-03 18:46] LABS: FREE T4 1.64 NG/DL (0.76-1.46)
--- NOTE | 2018-09-03 19:06 | ECGEPIP ---
Stationary ECG Study [facility] - ED Test Date: 2018-09-03 Pat Name: ROWAN KRAMER Department: Room: - Gender: F [employer]: : [id number] Requested By: FLORES Vazquez Order Number: [id number] Reading MD: Garfield Jaeger Measurements Intervals [place] Rate: 77 P: SD: 0 QRS: 16 QRSD: 84 T: 38 QT: 363 QTc: 413 Interpretive Statements SINUS RHYTHM WITH OCCASIONAL ATRIAL PREMATURE COMPLEXES BASELINE ARTIFACT AFFECTS INTERPRETATION Electronically Signed On 09-03-2018 19:06:13 EST by Garfield Jaeger
--- NOTE | 2018-09-03 19:14 | REP ---
CT ABDOMEN AND PELVIS WITHOUT CONTRAST: HISTORY: Altered mental status. COMPARISON: 07/18/2017. The patient is status-post cholecystectomy. Calcifications are present in the kidneys consistent with nephrolithiasis. A 4.8 cm cyst is present in the left kidney. There is minimal dilatation of the right renal collecting system. The liver, pancreas, spleen, and adrenal glands are normal in appearance. There is no mass, adenopathy or free fluid. A large right anterolateral ventral abdominal hernia containing nondilated loops of intestine is present. Linear densities are present in the left lower consistent with atelectasis or scar. The patient is status-post hysterectomy. The urinary bladder is normal in appearance. Degenerative change is present in the spine. IMPRESSION: 1. The patient is status-post cholecystectomy. 2. Bilateral nephrolithiasis. 3. 4.8 cm left renal cyst. 4. There is minimal dilatation of the right renal collecting system. 5. Large right anterolateral ventral abdominal hernia containing nondilated loops of intestine. 6. The patient is status-post hysterectomy. Electronically Signed by Jose De Jesus Rhodes MD 09/03/2018 07:18 P
[2018-09-03] MEDS ORDERED: cefTRIAXone SOD 1 GM in D5W MINI-BAG PLUS 50 ML IV ONE (19:15)
[2018-09-03] MEDS ORDERED: CEFD1CAP8 PO (19:43)
[2018-09-03] MEDS ORDERED: LEVO125T4 PO (19:43)
[2018-09-03 20:19] VITALS: BP 145/88
== END 2018-09-03 20:50 | disposition home or self-care (01) ==
LOC: M ED 16:19
DX: N39.0 Urinary tract infection, site not specified (principal); I11.0 Hypertensive heart disease with heart failure; I50.9 Heart failure, unspecified; E78.5 Hyperlipidemia, unspecified; F32.9 Major depressive disorder, single episode, unspecified; N18.9 Chronic kidney disease, unspecified; G30.9 Alzheimer's disease, unspecified; Z87.442 Personal history of urinary calculi; E03.9 Hypothyroidism, unspecified; Z99.81 Dependence on supplemental oxygen; N20.0 Calculus of kidney; N28.1 Cyst of kidney, acquired; M47.812 Spondylosis without myelopathy or radiculopathy, cervical region; M47.813 Spondylosis without myelopathy or radiculopathy, cervicothoracic region; R91.8 Other nonspecific abnormal finding of lung field; Z79.02 Long term (current) use of antithrombotics/antiplatelets; Z79.899 Other long term (current) drug therapy
CPT/HCPCS: 36415; 51701; 70450; 71250; 72125; 74176; 80048; 80076; 81001; 82140; 82550; 82553; 83605; 83930; 84439; 84443; 84484; 85025; 85610; 85730; 87040; 87088; 87186; 93005; 93041; 94760; 96374; 99285; J0696

== ENCOUNTER → 2019-12-28 | Outpatient (REF) | payer MEDICARE, MEDICAID ==
[~2019-12-28] MED LIST changes: -/ATOR40TA; +CEFD1CAP8 PO; +LEVO125T4 PO; +LIPI1TAB2; -MECL-68 PO; +MECL1TAB31 PO
== END ==
LOC: M SFHCCLAY 15:17
PROVIDERS: ATTEND Physician Assistant
DX: L89.153 Pressure ulcer of sacral region, stage 3 (principal)

== ENCOUNTER → 2020-01-18 | Outpatient (REF) | payer MEDICARE, MEDICAID, OTHER ==
[2020-01-18 08:04] LABS: HEMATOCRIT 33.9 % (36.0-47.0); HEMOGLOBIN 10.9 g/dl (12.0-15.5); MEAN CORPUSCULAR HEMOGLOBIN 33.6 pg (27.0-33.0); MEAN CORPUSCULAR HGB CONC 32.2 g/dl (32.0-36.5); MEAN CORPUSCULAR VOLUME 104.6 fl (80.0-96.0); PLATELET COUNT, AUTOMATED 313 10^3/uL (150-450); RED BLOOD COUNT 3.24 10^6/uL (4.00-5.40); WHITE BLOOD COUNT 9.1 10^3/uL (4.0-10.0)
[2020-01-18 08:46] LABS: ALBUMIN 2.4 GM/DL (3.2-5.2); ALT/SGPT 16 U/L (12-78); BILIRUBIN,TOTAL 0.4 MG/DL (0.2-1.0); BLOOD UREA NITROGEN 19 MG/DL (7-18); CALCIUM LEVEL 8.2 MG/DL (8.8-10.2); CARBON DIOXIDE LEVEL 28 MEQ/L (21-32); CHLORIDE LEVEL 111 MEQ/L (98-107); CREATININE FOR GFR 0.71 MG/DL (0.55-1.30); GLOMERULAR FILTRATION RATE > 60.0 (>32); GLUCOSE, FASTING 81 MG/DL (70-100); MAGNESIUM LEVEL 2.2 MG/DL (1.8-2.4); POTASSIUM SERUM 4.1 MEQ/L (3.5-5.1); SODIUM LEVEL 144 MEQ/L (136-145); TOTAL PROTEIN 5.3 GM/DL (6.4-8.2)
== END ==
LOC: SKLAB6 07:00
PROVIDERS: ATTEND Family Medicine

== ENCOUNTER → 2020-01-21 | Outpatient (REF) | payer MEDICARE, MEDICAID, OTHER ==
[2020-01-21 08:20] LABS: BLOOD UREA NITROGEN 22 MG/DL (7-18); CALCIUM LEVEL 8.8 MG/DL (8.8-10.2); CARBON DIOXIDE LEVEL 28 MEQ/L (21-32); CHLORIDE LEVEL 108 MEQ/L (98-107); CREATININE FOR GFR 0.84 MG/DL (0.55-1.30); GLOMERULAR FILTRATION RATE > 60.0 (>32); GLUCOSE, FASTING 103 MG/DL (70-100); POTASSIUM SERUM 4.2 MEQ/L (3.5-5.1); SODIUM LEVEL 144 MEQ/L (136-145)
== END ==
LOC: SKLAB6 07:00
PROVIDERS: ATTEND Family Medicine
DX: Z79.899 Other long term (current) drug therapy (principal)

== ENCOUNTER → 2020-01-26 | Outpatient (REF) | payer MEDICARE, MEDICAID ==
--- NOTE | 2020-01-27 00:39 | REPVR ---
PROCEDURE INFORMATION: Exam: XR Abdomen, 1 View Exam date and time: 01/26/2020 12:26 AM Age: 89 years old Clinical indication: Abdominal pain; Additional info: Increased abdominal pain TECHNIQUE: Imaging protocol: XR of the abdomen. Views: Frontal supine view of the abdomen. 1 View. COMPARISON: RF Retrograde Pyelogram 09/22/2017 1:29 PM FINDINGS: No evidence of small bowel obstruction. No pneumoperitoneum. Calcifications overlie the right kidney and multiple pelvic calcifications are present. Visualized bony structures are unremarkable. IMPRESSION: No abnormality of the bowel gas pattern. Right-sided renal calculi and multiple bilateral pelvic calculi Electronically signed by: Geo Mccann On 01/27/2020 00:38:44 AM
== END ==
LOC: SKLAB6 23:23
PROVIDERS: ATTEND Family Medicine
DX: R10.9 Unspecified abdominal pain (principal)

== ENCOUNTER → 2020-01-27 | Outpatient (REF) | payer MEDICARE, MEDICAID, OTHER ==
[2020-01-27 08:25] LABS: BLOOD UREA NITROGEN 24 MG/DL (7-18); CALCIUM LEVEL 8.2 MG/DL (8.8-10.2); CARBON DIOXIDE LEVEL 29 MEQ/L (21-32); CHLORIDE LEVEL 108 MEQ/L (98-107); CREATININE FOR GFR 0.79 MG/DL (0.55-1.30); GLOMERULAR FILTRATION RATE > 60.0 (>32); GLUCOSE, FASTING 86 MG/DL (70-100); POTASSIUM SERUM 3.9 MEQ/L (3.5-5.1); SODIUM LEVEL 143 MEQ/L (136-145)
== END ==
LOC: SKLAB6 07:00
PROVIDERS: ATTEND Family Medicine
DX: Z79.899 Other long term (current) drug therapy (principal)

== ENCOUNTER → 2020-02-24 | Outpatient (REF) | payer MEDICARE, MEDICAID, OTHER | LOC: SKLAB6 07:00 | DX: F03.91 Unspecified dementia, unspecified severity, with behavioral disturbance (principal); I48.91 Unspecified atrial fibrillation; E83.42 Hypomagnesemia; I10 Essential (primary) hypertension; E78.5 Hyperlipidemia, unspecified ==

== ENCOUNTER → 2020-03-13 | Outpatient (REF) | payer MEDICARE, MEDICAID, OTHER ==
[2020-04-21 03:11] LABS: BASO # 0.1 10^3/uL (0.0-0.2); BASO % 0.6 % (0.0-1.0); EOS # 0.2 10^3/uL (0.0-0.5); EOS % 1.9 % (0.0-3.0); HEMATOCRIT 38.9 % (36.0-47.0); HEMOGLOBIN 12.6 g/dl (12.0-15.5); LYMPH % 22.6 % (24.0-44.0); MEAN CORPUSCULAR HEMOGLOBIN 32.6 pg (27.0-33.0); MEAN CORPUSCULAR HGB CONC 32.4 g/dl (32.0-36.5); MEAN CORPUSCULAR VOLUME 100.8 fl (80.0-96.0); MONO # 0.9 10^3/uL (0.0-0.8); MONO % 9.8 % (0.0-5.0); NEUTROPHILS # 5.9 10^3/uL (1.5-8.5); NEUTROPHILS % 64.8 % (36.0-66.0); PLATELET COUNT, AUTOMATED 331 10^3/uL (150-450); RED BLOOD COUNT 3.86 10^6/uL (4.00-5.40)
[2020-04-28 09:30] LABS: BLOOD UREA NITROGEN 27 MG/DL (7-18); CARBON DIOXIDE LEVEL 31 mmol/L (20-29); CHLORIDE LEVEL 105 MEQ/L (98-107); CREATININE FOR GFR 0.92 MG/DL (0.55-1.30); GLOMERULAR FILTRATION RATE > 60.0 (>32); GLUCOSE, FASTING 101 MG/DL (70-100); POTASSIUM SERUM 4.4 MEQ/L (3.5-5.1); SODIUM LEVEL 143 MEQ/L (136-145)
[2020-04-28 09:31] LABS: ALBUMIN 3.1 GM/DL (3.2-5.2); ALT/SGPT 13 IU/L (0-32); BILIRUBIN,TOTAL 0.3 MG/DL (0.2-1.0); CALCIUM LEVEL 9.3 MG/DL (8.8-10.2); TOTAL PROTEIN 6.4 GM/DL (6.4-8.2)
== END ==
LOC: SKLAB6 12:53
DX: I50.9 Heart failure, unspecified (principal); N18.9 Chronic kidney disease, unspecified; E03.9 Hypothyroidism, unspecified; E83.42 Hypomagnesemia

== ENCOUNTER → 2020-03-13 | Outpatient (CLI) | payer MEDICARE, MEDICAID ==
[2020-04-30 01:29] LABS: ALBUMIN 3.1 GM/DL (3.2-5.2); ALT/SGPT 13 U/L (12-78); BILIRUBIN,TOTAL 0.3 MG/DL (0.2-1.0); BLOOD UREA NITROGEN 27 MG/DL (7-18); CALCIUM LEVEL 9.3 MG/DL (8.8-10.2); CARBON DIOXIDE LEVEL 31 MEQ/L (21-32); CHLORIDE LEVEL 105 MEQ/L (98-107); CREATININE FOR GFR 0.92 MG/DL (0.55-1.30); GLOMERULAR FILTRATION RATE > 60.0 (>32); GLUCOSE, FASTING 101 MG/DL (70-100); POTASSIUM SERUM 4.4 MEQ/L (3.5-5.1); SODIUM LEVEL 143 MEQ/L (136-145); TOTAL PROTEIN 6.4 GM/DL (6.4-8.2)
--- NOTE | 2020-05-05 10:44 | REP ---
BILATERAL LOWER EXTREMITY DUPLEX DOPPLER ULTRASOUND: HISTORY: Bilateral lower extremity pain and swelling. TECHNIQUE: Real time, hollins scale and color Doppler evaluation using linear high frequency transducer with color Doppler evaluation. FINDINGS: The right lower extremity demonstrates nonocclusive thrombus in the right popliteal vein along with normal flow dynamics through the common femoral vein and superficial femoral vein. The left lower extremity demonstrates nonocclusive thrombus from the common femoral vein through the proximal femoral vein followed by occlusive thrombus from the mid-left femoral vein to the popliteal vein. IMPRESSION: 1. Nonocclusive thrombus in the right popliteal vein. 2. Occlusive thrombus in the left mid to distal femoral vein and popliteal vein and nonocclusive thrombus in the left common femoral vein to proximal femoral vein. MTDD
== END ==
LOC: M LAB 11:40
DX: Z86.718 Personal history of other venous thrombosis and embolism (principal); Z79.01 Long term (current) use of anticoagulants

== ENCOUNTER → 2020-03-30 | Outpatient (REF) | payer MEDICARE, MEDICAID | LOC: SKLAB6 10:03 | DX: E03.9 Hypothyroidism, unspecified (principal) ==

== ENCOUNTER → 2020-04-27 | Outpatient (REF) | payer MEDICARE, MEDICAID, OTHER | LOC: SKLAB6 07:00 | DX: E03.9 Hypothyroidism, unspecified (principal) ==

== ENCOUNTER → 2020-07-05 | Outpatient (REF) | payer MEDICARE, MEDICAID | LOC: SKLAB6 07-04 13:18 → EDSTATUS 08-10 12:41 | DX: Z20.828 Contact with and (suspected) exposure to other viral communicable diseases (principal) ==

== ENCOUNTER → 2020-07-12 | Outpatient (REF) | payer MEDICARE, MEDICAID | LOC: SKLAB6 08:00 | PROVIDERS: ATTEND Internal Medicine | DX: Z20.828 Contact with and (suspected) exposure to other viral communicable diseases (principal) ==

== ENCOUNTER → 2020-07-19 | Outpatient (REF) | payer MEDICARE, MEDICAID ==
[2020-07-19 15:53] LABS: INFLUENZA A AMPLIFICATION NEGATIVE (NEGATIVE); INFLUENZA B AMPLIFICATION NEGATIVE (NEGATIVE)
== END ==
LOC: SKLAB6 08:00
PROVIDERS: ATTEND Internal Medicine
DX: Z20.828 Contact with and (suspected) exposure to other viral communicable diseases (principal)
CPT/HCPCS: 87502; U0003

== ENCOUNTER → 2020-07-26 | Outpatient (REF) | payer MEDICARE, MEDICAID, OTHER | LOC: SKLAB6 10:00 | DX: Z20.828 Contact with and (suspected) exposure to other viral communicable diseases (principal) ==

== ENCOUNTER → 2020-07-27 | Outpatient (REF) | payer MEDICARE, MEDICAID, OTHER ==
[2020-07-27 09:09] LABS: HEMATOCRIT 34.8 % (36.0-47.0); HEMOGLOBIN 10.8 g/dl (12.0-15.5); MEAN CORPUSCULAR HEMOGLOBIN 28.7 pg (27.0-33.0); MEAN CORPUSCULAR VOLUME 92.6 fl (80.0-96.0); PLATELET COUNT, AUTOMATED 412 10^3/uL (150-450); RED BLOOD COUNT 3.76 10^6/uL (4.00-5.40); WHITE BLOOD COUNT 10.3 10^3/uL (4.0-10.0)
[2020-07-27 09:47] LABS: ALBUMIN 2.7 GM/DL (3.2-5.2); BILIRUBIN,TOTAL 0.4 MG/DL (0.2-1.0); CALCIUM LEVEL 9.4 MG/DL (8.8-10.2); CREATININE FOR GFR 1.22 MG/DL (0.55-1.30); GLOMERULAR FILTRATION RATE 44.2 (>32); POTASSIUM SERUM 4.3 MEQ/L (3.5-5.1); THYROID STIMULATING HORMONE 3.41 uIU/ML (0.358-3.740); TOTAL PROTEIN 6.1 GM/DL (6.4-8.2)
== END ==
LOC: SKLAB6 07:00
DX: I50.9 Heart failure, unspecified (principal); N18.9 Chronic kidney disease, unspecified; E03.9 Hypothyroidism, unspecified; E83.42 Hypomagnesemia

== ENCOUNTER → 2020-08-02 | Outpatient (REF) | payer MEDICARE, MEDICAID, OTHER ==
[2020-08-02 11:41] LABS: INFLUENZA A AMPLIFICATION NEGATIVE (NEGATIVE); INFLUENZA B AMPLIFICATION NEGATIVE (NEGATIVE)
== END ==
LOC: SKLAB6 12:32
DX: Z20.828 Contact with and (suspected) exposure to other viral communicable diseases (principal)
CPT/HCPCS: 87631; U0003

== ENCOUNTER → 2020-08-09 | Outpatient (REF) | payer MEDICARE, MEDICAID, OTHER | LOC: SKLAB6 09:00 | DX: Z20.828 Contact with and (suspected) exposure to other viral communicable diseases (principal) ==

== ENCOUNTER → 2020-08-16 | Outpatient (REF) | payer MEDICARE, MEDICAID, OTHER | LOC: SKLAB6 10:00 | DX: Z20.828 Contact with and (suspected) exposure to other viral communicable diseases (principal) ==

== ENCOUNTER → 2020-08-23 | Outpatient (REF) | payer MEDICARE, MEDICAID, OTHER | LOC: SKLAB6 10:00 | PROVIDERS: ATTEND Internal Medicine | DX: Z11.52 Encounter for screening for COVID-19 (principal) ==

== ENCOUNTER → 2020-08-30 | Outpatient (REF) | payer MEDICARE, MEDICAID, OTHER | LOC: SKLAB6 10:00 | PROVIDERS: ATTEND Internal Medicine | DX: Z20.822 Contact with and (suspected) exposure to COVID-19 (principal) ==

== ENCOUNTER → 2020-08-31 | Outpatient (REF) | payer MEDICARE, MEDICAID, OTHER | LOC: SKLAB6 07:00 | DX: I50.9 Heart failure, unspecified (principal) ==

== ENCOUNTER → 2020-09-06 | Outpatient (REF) | payer MEDICARE, MEDICAID | LOC: SKLAB6 09:00 | PROVIDERS: ATTEND Internal Medicine | DX: Z20.822 Contact with and (suspected) exposure to COVID-19 (principal) ==

== ENCOUNTER → 2020-09-12 | Outpatient (REF) | payer MEDICARE, MEDICAID, OTHER | LOC: SKLAB6 08:00 | DX: Z20.822 Contact with and (suspected) exposure to COVID-19 (principal) ==

== ENCOUNTER → 2020-09-13 | Outpatient (REF) | payer MEDICARE, MEDICAID, OTHER ==
[2020-09-13 12:50] LABS: INFLUENZA A AMPLIFICATION NEGATIVE (NEGATIVE); INFLUENZA B AMPLIFICATION NEGATIVE (NEGATIVE)
== END ==
LOC: SKLAB6 09:00
PROVIDERS: ATTEND Internal Medicine
DX: Z20.822 Contact with and (suspected) exposure to COVID-19 (principal)
CPT/HCPCS: 87502; U0003

== ENCOUNTER → 2020-09-20 | Outpatient (REF) | payer MEDICARE, MEDICAID, OTHER | LOC: SKLAB6 10:00 | PROVIDERS: ATTEND Internal Medicine | DX: Z20.822 Contact with and (suspected) exposure to COVID-19 (principal) ==

== ENCOUNTER → 2020-09-27 | Outpatient (REF) | payer MEDICARE, MEDICAID | LOC: SKLAB6 09:00 | PROVIDERS: ATTEND Internal Medicine | DX: Z20.822 Contact with and (suspected) exposure to COVID-19 (principal) ==

== ENCOUNTER → 2020-10-04 | Outpatient (REF) | payer MEDICARE, MEDICAID, OTHER | LOC: SKLAB6 10:00 | PROVIDERS: ATTEND Internal Medicine | DX: Z11.52 Encounter for screening for COVID-19 (principal) ==

== ENCOUNTER → 2020-10-11 | Outpatient (REF) | payer MEDICARE, MEDICAID, OTHER | LOC: SKLAB6 10:00 | PROVIDERS: ATTEND Internal Medicine | DX: Z20.822 Contact with and (suspected) exposure to COVID-19 (principal) ==

== ENCOUNTER → 2020-10-18 | Outpatient (REF) | payer MEDICARE, MEDICAID, OTHER ==
[2020-10-18 13:27] LABS: HEMATOCRIT 36.5 % (36.0-47.0); MEAN CORPUSCULAR HEMOGLOBIN 28.9 pg (27.0-33.0); MEAN CORPUSCULAR HGB CONC 30.1 g/dl (32.0-36.5); MEAN CORPUSCULAR VOLUME 95.8 fl (80.0-96.0); PLATELET COUNT, AUTOMATED 390 10^3/uL (150-450); RED BLOOD COUNT 3.81 10^6/uL (4.00-5.40); WHITE BLOOD COUNT 10.4 10^3/uL (4.0-10.0)
[2020-10-18 13:47] LABS: CALCIUM LEVEL 10.7 MG/DL (8.8-10.2); CREATININE FOR GFR 1.24 MG/DL (0.55-1.30); GLOMERULAR FILTRATION RATE 43.4 (>32); POTASSIUM SERUM 4.2 MEQ/L (3.5-5.1)
[2020-10-18 15:40] LABS: APPEARANCE, URINE CLOUDY (CLEAR); BACTERIA, URINE AUTO 1+ (NEGATIVE); BILIRUBIN, URINE AUTO NEGATIVE (NEGATIVE); BLOOD, URINE BLOOD 3+ (NEGATIVE); COLOR, URINE YELLOW (YELLOW); GLUCOSE, URINE (UA) AUTO NEGATIVE (NEGATIVE); KETONE, URINE AUTO NEGATIVE (NEGATIVE); LEUKOCYTE ESTERASE, URINE AUTO 3+ (NEGATIVE); NITRITE, URINE AUTO NEGATIVE (NEGATIVE); PROTEIN, URINE AUTO 2+ mg/dL (NEGATIVE); RBC, URINE AUTO TNTC /HPF (0-3); SPECIFIC GRAVITY URINE AUTO 1.015 (1.002-1.035); SQUAMOUS EPITHELIAL CELL UR AU 0 /HPF (0-6); UROBILINOGEN, URINE AUTO 0.2 mg/dL (0.0-2.0); WBC, URINE AUTO TNTC /HPF (0-3)
== END ==
LOC: SKLAB6 14:45
DX: N93.9 Abnormal uterine and vaginal bleeding, unspecified (principal); N39.0 Urinary tract infection, site not specified

== ENCOUNTER → 2020-10-25 | Outpatient (REF) | payer MEDICARE, MEDICAID, OTHER | LOC: SKLAB6 12:08 | PROVIDERS: ATTEND Internal Medicine | DX: Z20.822 Contact with and (suspected) exposure to COVID-19 (principal) ==

== ENCOUNTER → 2020-10-30 | Outpatient (REF) | payer MEDICARE, MEDICAID, OTHER ==
[2020-10-30 09:37] LABS: CALCIUM LEVEL 10.7 MG/DL (8.8-10.2); CREATININE FOR GFR 1.09 MG/DL (0.55-1.30); GLOMERULAR FILTRATION RATE 50.3 (>32); POTASSIUM SERUM 4.1 MEQ/L (3.5-5.1)
[2020-10-30 09:49] LABS: HEMATOCRIT 40.1 % (36.0-47.0); HEMOGLOBIN 11.7 g/dl (12.0-15.5); MEAN CORPUSCULAR HGB CONC 29.2 g/dl (32.0-36.5); MEAN CORPUSCULAR VOLUME 99.5 fl (80.0-96.0); PLATELET COUNT, AUTOMATED 320 10^3/uL (150-450); RED BLOOD COUNT 4.03 10^6/uL (4.00-5.40); WHITE BLOOD COUNT 10.5 10^3/uL (4.0-10.0)
== END ==
LOC: SKLAB6 08:00
DX: L08.9 Local infection of the skin and subcutaneous tissue, unspecified (principal)

== ENCOUNTER → 2020-11-01 | Outpatient (REF) | payer MEDICARE, MEDICAID, OTHER | LOC: SKLAB6 09:00 | PROVIDERS: ATTEND Internal Medicine | DX: Z20.822 Contact with and (suspected) exposure to COVID-19 (principal) ==

== ENCOUNTER → 2020-11-17 | Outpatient (REF) | payer MEDICARE, MEDICAID, OTHER | LOC: SKLAB6 10:00 | PROVIDERS: ATTEND Internal Medicine | DX: Z20.822 Contact with and (suspected) exposure to COVID-19 (principal) ==

== ENCOUNTER → 2020-12-25 | Outpatient (CLI) | payer MEDICARE, MEDICAID ==
[2020-12-26 00:41] LABS: BASO % 0.2 % (0.0-1.0); EOS % 0.2 % (0.0-3.0); HEMOGLOBIN 9.5 g/dl (12.0-15.5); LYMPH # 1.6 10^3/uL (1.5-5.0); LYMPH % 9.2 % (24.0-44.0); MEAN CORPUSCULAR HEMOGLOBIN 29.4 pg (27.0-33.0); MEAN CORPUSCULAR HGB CONC 30.6 g/dl (32.0-36.5); MONO # 1.4 10^3/uL (0.0-0.8); MONO % 7.7 % (2.0-8.0); NEUTROPHILS # 14.5 10^3/uL (1.5-8.5); NEUTROPHILS % 82.1 % (36.0-66.0); PLATELET COUNT, AUTOMATED 287 10^3/uL (150-450); RED BLOOD COUNT 3.23 10^6/uL (4.00-5.40); WHITE BLOOD COUNT 17.7 10^3/uL (4.0-10.0)
[2020-12-26 01:08] LABS: ALBUMIN 2.2 GM/DL (3.2-5.2); BILIRUBIN,TOTAL 0.3 MG/DL (0.2-1.0); CALCIUM LEVEL 10.2 MG/DL (8.8-10.2); CREATININE FOR GFR 1.23 MG/DL (0.55-1.30); GLOMERULAR FILTRATION RATE 43.8 (>32); POTASSIUM SERUM 3.7 MEQ/L (3.5-5.1); TOTAL PROTEIN 6.2 GM/DL (6.4-8.2)
[2020-12-26 01:10] LABS: APPEARANCE, URINE TURBID (CLEAR); BACTERIA, URINE AUTO 3+ (NEGATIVE); BILIRUBIN, URINE AUTO NEGATIVE (NEGATIVE); BLOOD, URINE BLOOD 1+ (NEGATIVE); COLOR, URINE AMBER (YELLOW); GLUCOSE, URINE (UA) AUTO NEGATIVE (NEGATIVE); KETONE, URINE AUTO NEGATIVE (NEGATIVE); LEUKOCYTE ESTERASE, URINE AUTO 3+ (NEGATIVE); MUCUS, URINE SMALL (NEGATIVE); NITRITE, URINE AUTO NEGATIVE (NEGATIVE); PROTEIN, URINE AUTO 2+ mg/dL (NEGATIVE); RBC, URINE AUTO 25 /HPF (0-3); SPECIFIC GRAVITY URINE AUTO 1.018 (1.002-1.035); SQUAMOUS EPITHELIAL CELL UR AU 0 /HPF (0-6); UROBILINOGEN, URINE AUTO 0.2 mg/dL (0.0-2.0); WBC, URINE AUTO TNTC /HPF (0-3)
--- NOTE | 2020-12-26 01:12 | REPVR ---
PROCEDURE INFORMATION: Exam: XR Chest Exam date and time: 12/26/2020 12:43 AM Age: 89 years old Clinical indication: Other: Elevated temp TECHNIQUE: Imaging protocol: XR of the chest. Views: 1 view. COMPARISON: CT Chest without contrast 09/03/2018 5:15 PM FINDINGS: Lungs: Bilateral perihilar nonspecific reticulonodular opacities. Pleural spaces: Unremarkable. No pleural effusion. No pneumothorax. Heart/Mediastinum: Unremarkable. No cardiomegaly. Vasculature: Atherosclerotic disease of the thoracic aorta. Bones/joints: Mild osteopenia. IMPRESSION: No acute cardiopulmonary pathology. Electronically signed by: Michael eCnteno On 12/26/2020 01:11:41 AM
== END ==
LOC: SKLAB6 22:30
DX: R50.9 Fever, unspecified (principal)

== ENCOUNTER → 2020-12-26 | Outpatient (REF) | payer MEDICARE, MEDICAID ==
--- NOTE | 2020-12-26 22:56 | REPVR ---
PROCEDURE INFORMATION: Exam: XR Abdomen Exam date and time: 12/26/2020 3:26 PM Age: 89 years old Clinical indication: Abdominal pain; Acute TECHNIQUE: Imaging protocol: XR of the abdomen. Views: Frontal supine view of the abdomen. 1 View. COMPARISON: CR Abdomen,Flat Plate KUB 01/27/2020 12:12 AM FINDINGS: Gastrointestinal tract: Minimal gas in the GI tract without abnormal dilatation. There is right lateral extension of bowel segments containing gas consistent with an abdominal wall hernia extending to the right which is similar to the prior study. Organs: Probable nonobstructing right renal calculi. Bones/joints: Osteopenia. Degenerative changes of the lumbar spine. IMPRESSION: 1. There has been little change from 01/27/2020. 2. Protrusion of nondilated gas containing bowel laterally on the right consistent with abdominal wall hernia containing bowel segments. No signs of obstruction are seen. 3. Probable nonobstructing right renal calculi which are similar. Electronically signed by: Luis Jon On 12/26/2020 22:56:20 PM
== END ==
LOC: SKLAB6 00:05
DX: N20.0 Calculus of kidney (principal); K46.9 Unspecified abdominal hernia without obstruction or gangrene; M85.88 Other specified disorders of bone density and structure, other site

== ENCOUNTER → 2020-12-27 | Outpatient (REF) | payer MEDICARE, MEDICAID ==
[2020-12-27 08:11] LABS: HEMATOCRIT 30.3 % (36.0-47.0); HEMOGLOBIN 9.3 g/dl (12.0-15.5); MEAN CORPUSCULAR HEMOGLOBIN 29.1 pg (27.0-33.0); MEAN CORPUSCULAR HGB CONC 30.7 g/dl (32.0-36.5); MEAN CORPUSCULAR VOLUME 94.7 fl (80.0-96.0); PLATELET COUNT, AUTOMATED 275 10^3/uL (150-450); WHITE BLOOD COUNT 19.9 10^3/uL (4.0-10.0)
[2020-12-27 08:26] LABS: CALCIUM LEVEL 9.4 MG/DL (8.8-10.2); CREATININE FOR GFR 1.16 MG/DL (0.55-1.30); GLOMERULAR FILTRATION RATE 46.8 (>32); POTASSIUM SERUM 3.9 MEQ/L (3.5-5.1)
== END ==
LOC: SKLAB6 07:00
DX: D72.829 Elevated white blood cell count, unspecified (principal)

== ENCOUNTER → 2020-12-27 | Outpatient (REF) | payer MEDICARE, MEDICAID | LOC: SKLAB6 05:30 | DX: K92.2 Gastrointestinal hemorrhage, unspecified (principal) ==

== ENCOUNTER → 2020-12-27 | Outpatient (REF) | payer MEDICARE, MEDICAID ==
[2020-12-27 14:52] LABS: ALBUMIN 2.1 GM/DL (3.2-5.2); BILIRUBIN,TOTAL 0.2 MG/DL (0.2-1.0); C REACTIVE PROTEIN QUANTITATIV 28.7 MG/DL (0.00-0.30); CALCIUM LEVEL 9.6 MG/DL (8.8-10.2); CREATININE FOR GFR 1.09 MG/DL (0.55-1.30); GLOMERULAR FILTRATION RATE 50.3 (>32); POTASSIUM SERUM 4.3 MEQ/L (3.5-5.1); TOTAL PROTEIN 5.4 GM/DL (6.4-8.2)
== END ==
LOC: SKLAB6 07:00
DX: D72.829 Elevated white blood cell count, unspecified (principal)

== ENCOUNTER → 2020-12-27 | Outpatient (CLI) | payer MEDICARE, OTHER ==
--- NOTE | 2020-12-27 13:45 | REP ---
INDICATION: ABD PAIN. COMPARISON: 09/03/2018 TECHNIQUE: Limited noncontrast enhanced CT abdomen using standard helical technique without the administration of intravenous or oral bowel preparatory contrast. FINDINGS: The lung bases are unchanged compared to the prior chest CT of 09/03/2018. The right kidney measures 11.7 by 10.4 by 9.1 cm. In addition, the kidneys of mixed density and has lost its reniform shape with no differentiation between the renal cortex in the renal sinus. There is perinephric stranding. There are 2 nephroliths present. There is dilatation of the imaged portion of the right ureter. The left kidney is unchanged. The pancreas, adrenal glands, spleen, and liver are unchanged. There is a large right-sided lateral abdominal wall hernia which is unchanged. There is no evidence of intestinal obstruction. There is no evidence of free fluid or free air. There is no significant change in appearance of the imaged osseous structures. IMPRESSION: 1. The right kidney is markedly abnormal as described above. This changes taken place since the last CT of record 09/03/2018. Chronic inflammatory disease is suspected, however, the etiology is uncertain 2. Other findings as described above. <Electronically signed by Claude Lowery > 12/27/20 [id number]
== END ==
LOC: M RAD 13:03
PROVIDERS: ATTEND Nurse Practitioner
DX: R10.9 Unspecified abdominal pain (principal)

== ENCOUNTER → 2020-12-28 | Outpatient (REF) | payer MEDICARE, MEDICAID ==
[2020-12-28 08:39] LABS: HEMATOCRIT 37.3 % (36.0-47.0); HEMOGLOBIN 11.2 g/dl (12.0-15.5); MEAN CORPUSCULAR HEMOGLOBIN 29.2 pg (27.0-33.0); MEAN CORPUSCULAR VOLUME 97.4 fl (80.0-96.0); PLATELET COUNT, AUTOMATED 383 10^3/uL (150-450); RED BLOOD COUNT 3.83 10^6/uL (4.00-5.40); WHITE BLOOD COUNT 26.3 10^3/uL (4.0-10.0)
[2020-12-28 09:16] LABS: BILIRUBIN,TOTAL 0.2 MG/DL (0.2-1.0); CALCIUM LEVEL 10.6 MG/DL (8.8-10.2); CREATININE FOR GFR 1.18 MG/DL (0.55-1.30); GLOMERULAR FILTRATION RATE 45.9 (>32); POTASSIUM SERUM 4.5 MEQ/L (3.5-5.1); TOTAL PROTEIN 7.2 GM/DL (6.4-8.2)
== END ==
LOC: SKLAB6 07:00
DX: D72.829 Elevated white blood cell count, unspecified (principal)

== ENCOUNTER → 2020-12-29 | Outpatient (REF) | payer MEDICARE, OTHER ==
[2020-12-29 10:33] LABS: C REACTIVE PROTEIN QUANTITATIV 21.7 MG/DL (0.00-0.30); CALCIUM LEVEL 9.8 MG/DL (8.8-10.2); CREATININE FOR GFR 1.06 MG/DL (0.55-1.30); POTASSIUM SERUM 4.8 MEQ/L (3.5-5.1)
== END ==
LOC: SKLAB6 07:00
DX: R79.82 Elevated C-reactive protein (CRP) (principal); I12.9 Hypertensive chronic kidney disease with stage 1 through stage 4 chronic kidney disease, or unspecified chronic kidney disease; N18.9 Chronic kidney disease, unspecified; R21 Rash and other nonspecific skin eruption

== ENCOUNTER → 2020-12-29 | Outpatient (REF) | payer MEDICARE, OTHER, MEDICAID ==
[2020-12-29 10:58] LABS: BASO # 0.1 10^3/uL (0.0-0.2); BASO % 0.2 % (0.0-1.0); EOS # 0.5 10^3/uL (0.0-0.5); EOS % 2.4 % (0.0-3.0); HEMATOCRIT 35.6 % (36.0-47.0); HEMOGLOBIN 10.6 g/dl (12.0-15.5); LYMPH % 4.8 % (24.0-44.0); MEAN CORPUSCULAR HEMOGLOBIN 28.7 pg (27.0-33.0); MEAN CORPUSCULAR HGB CONC 29.8 g/dl (32.0-36.5); MEAN CORPUSCULAR VOLUME 96.5 fl (80.0-96.0); MONO # 1.2 10^3/uL (0.0-0.8); MONO % 5.5 % (2.0-8.0); NEUTROPHILS # 18.2 10^3/uL (1.5-8.5); NEUTROPHILS % 86.2 % (36.0-66.0); PLATELET COUNT, AUTOMATED 407 10^3/uL (150-450); RED BLOOD COUNT 3.69 10^6/uL (4.00-5.40); WHITE BLOOD COUNT 21.2 10^3/uL (4.0-10.0)
[2020-12-29 13:43] LABS: ALBUMIN 1.9 GM/DL (3.2-5.2); BILIRUBIN,TOTAL 0.1 MG/DL (0.2-1.0); CALCIUM LEVEL 9.7 MG/DL (8.8-10.2); CREATININE FOR GFR 1.11 MG/DL (0.55-1.30); GLOMERULAR FILTRATION RATE 49.3 (>32); TOTAL PROTEIN 5.4 GM/DL (6.4-8.2)
== END ==
LOC: SKLAB6 07:00
DX: R21 Rash and other nonspecific skin eruption (principal); R79.82 Elevated C-reactive protein (CRP); I12.9 Hypertensive chronic kidney disease with stage 1 through stage 4 chronic kidney disease, or unspecified chronic kidney disease; N18.9 Chronic kidney disease, unspecified

== ENCOUNTER → 2021-01-01 | Outpatient (REF) | payer MEDICARE, OTHER, MEDICAID ==
[2021-01-01 13:15] LABS: BASO # 0.1 10^3/uL (0.0-0.2); BASO % 0.5 % (0.0-1.0); EOS # 0.1 10^3/uL (0.0-0.5); EOS % 0.4 % (0.0-3.0); HEMATOCRIT 30.5 % (36.0-47.0); HEMOGLOBIN 9.4 g/dl (12.0-15.5); LYMPH # 1.8 10^3/uL (1.5-5.0); LYMPH % 7.7 % (24.0-44.0); MEAN CORPUSCULAR HEMOGLOBIN 29.2 pg (27.0-33.0); MEAN CORPUSCULAR HGB CONC 30.8 g/dl (32.0-36.5); MEAN CORPUSCULAR VOLUME 94.7 fl (80.0-96.0); MONO # 1.7 10^3/uL (0.0-0.8); MONO % 7.1 % (2.0-8.0); NEUTROPHILS # 18.8 10^3/uL (1.5-8.5); NEUTROPHILS % 80.9 % (36.0-66.0); PLATELET COUNT, AUTOMATED 380 10^3/uL (150-450); RED BLOOD COUNT 3.22 10^6/uL (4.00-5.40)
[2021-01-01 13:37] LABS: C REACTIVE PROTEIN QUANTITATIV 14.1 MG/DL (0.00-0.30); CALCIUM LEVEL 9.2 MG/DL (8.8-10.2); CREATININE FOR GFR 1.1 MG/DL (0.55-1.30); GLOMERULAR FILTRATION RATE 49.8 (>32); POTASSIUM SERUM 4.9 MEQ/L (3.5-5.1)
[2021-01-01 13:51] LABS: WHITE BLOOD COUNT 23.2 10^3/uL (4.0-10.0)
== END ==
LOC: SKLAB6 07:00
DX: N10 Acute pyelonephritis (principal)

== ENCOUNTER → 2021-01-03 | Outpatient (REF) | payer MEDICARE, OTHER, MEDICAID ==
[2021-01-03 09:01] LABS: HEMATOCRIT 36.8 % (36.0-47.0); MEAN CORPUSCULAR HEMOGLOBIN 28.7 pg (27.0-33.0); MEAN CORPUSCULAR HGB CONC 29.9 g/dl (32.0-36.5); MEAN CORPUSCULAR VOLUME 96.1 fl (80.0-96.0); PLATELET COUNT, AUTOMATED 387 10^3/uL (150-450); RED BLOOD COUNT 3.83 10^6/uL (4.00-5.40); WHITE BLOOD COUNT 27.2 10^3/uL (4.0-10.0)
[2021-01-03 09:09] LABS: ALBUMIN 2.2 GM/DL (3.2-5.2); BILIRUBIN,TOTAL 0.3 MG/DL (0.2-1.0); C REACTIVE PROTEIN QUANTITATIV 18.7 MG/DL (0.00-0.30); CREATININE FOR GFR 0.98 MG/DL (0.55-1.30); GLOMERULAR FILTRATION RATE 56.9 (>32); POTASSIUM SERUM 5.1 MEQ/L (3.5-5.1); TOTAL PROTEIN 6.2 GM/DL (6.4-8.2)
== END ==
LOC: SKLAB6 07:00
DX: N10 Acute pyelonephritis (principal)

== ENCOUNTER → 2021-01-04 | Outpatient (CLI) | payer MEDICARE, OTHER, MEDICAID ==
[~2021-01-04] MED LIST changes: +ISOVUE-370 76% 100ML VIAL As Ordered ONE
--- NOTE | 2021-01-04 14:55 | REP ---
INDICATION: PELVIC PAIN,KHX KIDNEY STONES. COMPARISON: 12/27/2020 the latest prior also without contrast TECHNIQUE: Limited noncontrast enhanced exam FINDINGS: The lung bases are unchanged. Once again, the right kidney is markedly abnormal status quo. There is a trace amount of free fluid in the pelvis. The examination of 12/27/[address] only the huge right-sided abdominal wall hernia is unchanged. There is no bowel obstruction. There is no change in appearance of the solid intra-abdominal organs, pancreas, adrenal glands, or left kidney. There is no evidence of free air. There is no change in the osseous structures. There is no significant change in appearance of the abdominal aorta or para-aortic regions. IMPRESSION: No significant change compared to the prior exam as described above. <Electronically signed by Claude Lowery > 01/04/21 [id number]
== END ==
LOC: M RAD 13:31
PROVIDERS: ATTEND Nurse Practitioner Adult Health
DX: R10.2 Pelvic and perineal pain (principal); Z87.442 Personal history of urinary calculi

== ENCOUNTER → 2021-01-05 | Outpatient (CLI) | payer MEDICARE, OTHER ==
[~2021-01-05] MED LIST changes: +GASTROGRAFIN SOLUTION 30ML (Q9963) As Ordered ONE
--- NOTE | 2021-01-05 16:07 | REP ---
INDICATION: ABD/PEL PAIN ABN IMAG CT. COMPARISON: 01/04/2021 noncontrast enhanced exam TECHNIQUE: Standard helical technique after the intravenous administration of 100 cc Isovue 370 and oral bowel preparatory contrast administration. FINDINGS: There is no change in the lung bases. The large masslike density in the right retroperitoneum enhances in the mixed fashion consistent with a markedly abnormal kidney. The size and shape of which has not changed compared to the prior exam. There is mild intrahepatic ductal dilatation. The spleen, pancreas, adrenal glands, and left kidney are within normal limits the exception of a rather large left renal cyst arising from the inferior pole. The appearance of this is unchanged compared to an older CT of 07/18/2017. The cyst has a maximal dimension of 4.8 cm and shows no evidence of abnormal enhancement. Other smaller left renal cortical cysts are also noted. Once again, there is a large right anterolateral abdominal wall hernia through which both large and small bowel of reside. There is no intestinal obstruction. The appearance of this has not changed significantly for years. There is a trace amount of free fluid the pelvis. There is no change in the abdominal aorta or para-regions. Marked chronic changes are again seen involving the imaged osseous structures with spinal in hip degenerative changes and bony demineralization status quo. IMPRESSION: Markedly abnormal right kidney as described above. Exact etiology uncertain. This was 1st identified on 12/27/2020 representing a change from the next older exam dated 09/03/2018. Exact etiology is uncertain. Combination of infarction/infection/obstruction./neoplastic change. Consider urological consultation. Other findings as described above. <Electronically signed by Claude Lowery > 01/05/21 [id number]
== END ==
LOC: M RAD 13:31
DX: R10.2 Pelvic and perineal pain (principal)
CPT/HCPCS: 74177; Q9963; Q9967

== ENCOUNTER → 2021-01-08 | Outpatient (REF) | payer MEDICARE, OTHER, MEDICAID ==
[~2021-01-08] MED LIST changes: -GASTROGRAFIN SOLUTION 30ML (Q9963) As Ordered ONE; -ISOVUE-370 76% 100ML VIAL As Ordered ONE
[2021-01-08 09:29] LABS: HEMATOCRIT 35.4 % (36.0-47.0); HEMOGLOBIN 10.7 g/dl (12.0-15.5); MEAN CORPUSCULAR HEMOGLOBIN 28.8 pg (27.0-33.0); MEAN CORPUSCULAR HGB CONC 30.2 g/dl (32.0-36.5); MEAN CORPUSCULAR VOLUME 95.4 fl (80.0-96.0); PLATELET COUNT, AUTOMATED 336 10^3/uL (150-450); RED BLOOD COUNT 3.71 10^6/uL (4.00-5.40); WHITE BLOOD COUNT 18.8 10^3/uL (4.0-10.0)
[2021-01-08 10:02] LABS: CALCIUM LEVEL 9.4 MG/DL (8.8-10.2); CREATININE FOR GFR 1.14 MG/DL (0.55-1.30); GLOMERULAR FILTRATION RATE 47.8 (>32); POTASSIUM SERUM 4.8 MEQ/L (3.5-5.1)
== END ==
LOC: SKLAB6 07:00
DX: N18.9 Chronic kidney disease, unspecified (principal)

== ENCOUNTER → 2021-01-18 | Outpatient (REF) | payer MEDICARE, OTHER ==
--- NOTE | 2021-01-18 11:13 | REP ---
INDICATION: FALL COMPARISON: None. TECHNIQUE: Five views right knee. FINDINGS: There is no evidence of acute fracture, dislocation, or intrinsic bone disease.There is moderate medial joint space narrowing and subchondral sclerosis. Mild scattered vascular calcifications are present in the soft tissues. I see no radiographic evidence of a significant joint effusion. IMPRESSION: No fracture or dislocation. Degenerative changes. <Electronically signed by Kannan Miner > 01/18/21 [id number]
--- NOTE | 2021-01-18 11:17 | REP ---
INDICATION: FALL COMPARISON: None. TECHNIQUE: Three views right shoulder. FINDINGS: There is no evidence of acute fracture, dislocation, or intrinsic bone disease. IMPRESSION: No fracture or dislocation. <Electronically signed by Kannan Miner > 01/18/21 [id number]
== END ==
LOC: SKLAB6 10:00
DX: M85.861 Other specified disorders of bone density and structure, right lower leg (principal); Z91.81 History of falling

== ENCOUNTER → 2021-01-25 | Outpatient (REF) | payer MEDICARE, OTHER, MEDICAID ==
[2021-01-25 11:05] LABS: HEMATOCRIT 33.1 % (36.0-47.0); HEMOGLOBIN 9.8 g/dl (12.0-15.5); MEAN CORPUSCULAR HEMOGLOBIN 28.8 pg (27.0-33.0); MEAN CORPUSCULAR HGB CONC 29.6 g/dl (32.0-36.5); MEAN CORPUSCULAR VOLUME 97.4 fl (80.0-96.0); PLATELET COUNT, AUTOMATED 344 10^3/uL (150-450); WHITE BLOOD COUNT 12.9 10^3/uL (4.0-10.0)
[2021-01-25 11:54] LABS: ALBUMIN 2.4 GM/DL (3.2-5.2); BILIRUBIN,TOTAL 0.4 MG/DL (0.2-1.0); CALCIUM LEVEL 10.4 MG/DL (8.8-10.2); CREATININE FOR GFR 1.16 MG/DL (0.55-1.30); GLOMERULAR FILTRATION RATE 46.8 (>32); POTASSIUM SERUM 4.6 MEQ/L (3.5-5.1); THYROID STIMULATING HORMONE 3.25 uIU/ML (0.358-3.740)
== END ==
LOC: SKLAB6 07:00
DX: I50.9 Heart failure, unspecified (principal); N18.9 Chronic kidney disease, unspecified; E03.9 Hypothyroidism, unspecified; E83.42 Hypomagnesemia

== ENCOUNTER → 2021-02-26 | Outpatient (REF) | payer MEDICARE, OTHER ==
[~2021-02-26] MED LIST changes: -CEFD1CAP8 PO; +CEFD300C41 PO; -CHLO10CA PO; +CHLO10CA6 PO
[2021-02-26 15:18] LABS: C REACTIVE PROTEIN QUANTITATIV 8.95 MG/DL (0.00-0.30); PHOSPHORUS LEVEL 3.3 MG/DL (2.5-4.9)
[2021-02-26 15:29] LABS: PTH INTACT 18.8 PG/ML (18.5-88.0)
== END ==
LOC: SKLAB6 09:17
DX: E83.52 Hypercalcemia (principal)

== ENCOUNTER → 2021-03-20 | Outpatient (REF) | payer MEDICARE, OTHER, MEDICAID ==
[2021-03-20 13:56] LABS: HEMATOCRIT 36.1 % (36.0-47.0); HEMOGLOBIN 10.5 g/dl (12.0-15.5); MEAN CORPUSCULAR HEMOGLOBIN 28.2 pg (27.0-33.0); MEAN CORPUSCULAR HGB CONC 29.1 g/dl (32.0-36.5); PLATELET COUNT, AUTOMATED 357 10^3/uL (150-450); RED BLOOD COUNT 3.72 10^6/uL (4.00-5.40); WHITE BLOOD COUNT 11.9 10^3/uL (4.0-10.0)
[2021-03-20 15:13] LABS: CALCIUM LEVEL 9.7 MG/DL (8.8-10.2); CREATININE FOR GFR 1.13 MG/DL (0.55-1.30); GLOMERULAR FILTRATION RATE 48.3 (>32); POTASSIUM SERUM 5.6 MEQ/L (3.5-5.1)
== END ==
LOC: SKLAB6 12:47
PROVIDERS: ATTEND Internal Medicine
DX: R60.0 Localized edema (principal)

== ENCOUNTER → 2021-03-21 | Outpatient (REF) | payer MEDICARE, OTHER, MEDICAID ==
[2021-03-21 12:07] LABS: CALCIUM LEVEL 9.8 MG/DL (8.8-10.2); CREATININE FOR GFR 1.17 MG/DL (0.55-1.30); GLOMERULAR FILTRATION RATE 46.4 (>32)
== END ==
LOC: SKLAB6 07:00
PROVIDERS: ATTEND Internal Medicine
DX: N18.9 Chronic kidney disease, unspecified (principal); R60.0 Localized edema

== ENCOUNTER → 2021-05-28 | Outpatient (REF) | payer MEDICARE, OTHER, MEDICAID ==
[~2021-05-28] MED LIST changes: +CEFD1CAP8 PO; -CEFD300C41 PO; +CHLO10CA PO; -CHLO10CA6 PO
[2021-05-28 14:18] LABS: HEMATOCRIT 37.1 % (36.0-47.0); HEMOGLOBIN 10.8 g/dl (12.0-15.5); MEAN CORPUSCULAR HEMOGLOBIN 27.6 pg (27.0-33.0); MEAN CORPUSCULAR HGB CONC 29.1 g/dl (32.0-36.5); MEAN CORPUSCULAR VOLUME 94.9 fl (80.0-96.0); PLATELET COUNT, AUTOMATED 404 10^3/uL (150-450); RED BLOOD COUNT 3.91 10^6/uL (4.00-5.40); WHITE BLOOD COUNT 17.9 10^3/uL (4.0-10.0)
[2021-05-28 14:38] LABS: CALCIUM LEVEL 11.2 MG/DL (8.8-10.2); CREATININE FOR GFR 1.16 MG/DL (0.55-1.30); GLOMERULAR FILTRATION RATE 46.8 (>32)
== END ==
LOC: SKLAB6 10:41
PROVIDERS: ATTEND Internal Medicine
DX: R63.8 Other symptoms and signs concerning food and fluid intake (principal); N18.9 Chronic kidney disease, unspecified; F03.90 Unspecified dementia, unspecified severity, without behavioral disturbance, psychotic disturbance, mood disturbance, and anxiety; R63.4 Abnormal weight loss

== ENCOUNTER → 2021-05-30 | Outpatient (REF) | payer MEDICARE, OTHER, MEDICAID ==
[2021-05-30 18:47] LABS: HEMATOCRIT 36.5 % (36.0-47.0); HEMOGLOBIN 10.8 g/dl (12.0-15.5); MEAN CORPUSCULAR HEMOGLOBIN 27.4 pg (27.0-33.0); MEAN CORPUSCULAR HGB CONC 29.6 g/dl (32.0-36.5); MEAN CORPUSCULAR VOLUME 92.6 fl (80.0-96.0); PLATELET COUNT, AUTOMATED 408 10^3/uL (150-450); RED BLOOD COUNT 3.94 10^6/uL (4.00-5.40); WHITE BLOOD COUNT 18.2 10^3/uL (4.0-10.0)
== END ==
LOC: SKLAB6 07:00
PROVIDERS: ATTEND Internal Medicine
DX: D72.829 Elevated white blood cell count, unspecified (principal)

== ENCOUNTER → 2021-05-31 | Outpatient (REF) | payer MEDICARE, OTHER, MEDICAID ==
[2021-05-31 05:32] LABS: APPEARANCE, URINE CLOUDY (CLEAR); BACTERIA, URINE AUTO 1+ (NEGATIVE); BILIRUBIN, URINE AUTO NEGATIVE (NEGATIVE); BLOOD, URINE BLOOD 2+ (NEGATIVE); COLOR, URINE YELLOW (YELLOW); GLUCOSE, URINE (UA) AUTO NEGATIVE (NEGATIVE); KETONE, URINE AUTO NEGATIVE (NEGATIVE); LEUKOCYTE ESTERASE, URINE AUTO 3+ (NEGATIVE); MUCUS, URINE SMALL (NEGATIVE); NITRITE, URINE AUTO NEGATIVE (NEGATIVE); PROTEIN, URINE AUTO 3+ mg/dL (NEGATIVE); RBC, URINE AUTO 18 /HPF (0-3); SPECIFIC GRAVITY URINE AUTO 1.016 (1.002-1.035); SQUAMOUS EPITHELIAL CELL UR AU 5 /HPF (0-6); TRANSITIONAL EPITHELIAL AUTO 2 /HPF; UROBILINOGEN, URINE AUTO 0.2 mg/dL (0.0-2.0); WBC, URINE AUTO TNTC /HPF (0-3)
== END ==
LOC: SKLAB6 05:00
PROVIDERS: ATTEND Internal Medicine
DX: D72.829 Elevated white blood cell count, unspecified (principal); Z79.899 Other long term (current) drug therapy

== ENCOUNTER → 2021-06-07 | Outpatient (REF) | payer MEDICARE, OTHER, MEDICAID | LOC: SKLAB6 09:17 | PROVIDERS: ATTEND Internal Medicine | DX: Z20.822 Contact with and (suspected) exposure to COVID-19 (principal) ==

== ENCOUNTER → 2021-06-11 | Outpatient (REF) | payer MEDICARE, OTHER, MEDICAID | LOC: SKLAB6 06:16 | PROVIDERS: ATTEND Internal Medicine | DX: Z20.822 Contact with and (suspected) exposure to COVID-19 (principal) ==

== ENCOUNTER → 2021-06-14 | Outpatient (REF) | payer MEDICARE, OTHER, MEDICAID | LOC: SKLAB6 06:31 | PROVIDERS: ATTEND Internal Medicine | DX: Z20.822 Contact with and (suspected) exposure to COVID-19 (principal) ==

== ENCOUNTER → 2021-06-18 | Outpatient (REF) | payer MEDICARE, OTHER, MEDICAID | LOC: SKLAB6 05:46 | PROVIDERS: ATTEND Internal Medicine | DX: Z20.822 Contact with and (suspected) exposure to COVID-19 (principal) ==

== ENCOUNTER → 2021-06-21 | Outpatient (REF) | payer MEDICARE, OTHER, MEDICAID | LOC: SKLAB6 05:35 | PROVIDERS: ATTEND Internal Medicine | DX: Z20.822 Contact with and (suspected) exposure to COVID-19 (principal) ==

== ENCOUNTER → 2021-06-27 | Outpatient (REF) | payer MEDICARE, OTHER, MEDICAID | LOC: SKLAB6 14:05 | PROVIDERS: ATTEND Internal Medicine | DX: Z20.822 Contact with and (suspected) exposure to COVID-19 (principal) ==